=== PATIENT | female | born 1955 | race African-American/Black ===

== ENCOUNTER 2024-12-07 10:41 | Outpatient (REF) | payer MEDICARE, SELFPAY ==
--- OUTSIDE RECORDS SUMMARY | 2024-12-07 14:18 | XMS_ITS | Clinical Summary ---
Author Organization 175 [facility] Address [address] [place] [address] Phone Care Team Providers Care Psychiatric Assistant Name Role Phone Del Aparicio MD Primary Care Provider [phone] Allergies No known active allergies Medications pravastatin [...] daily. Obstructive sleep apnea 05/15/2020 Overview (07/23/2024): [facility] Home Sleep Apnea Test: Date 05/09/2020; [...] PM EST Office Visit Orthopedic Surgery - [address] [place] [phone] Mary Kate Torrez PA Bilateral shoulder pain, unspecified chronicity (Primary Dx); Pain and swelling of right wrist; Numbness and tingling in left hand 11/24/2024 Telephone Internal Medicine [address] 200 [place] [phone] Rachel Jean [place] faxed order (L&C) 11/23/2024 Telephone Internal Medicine [address] [phone] Del Aparicio MD Joseph: Epi notes 11/18/2024 1:00 PM EST Office Visit Internal Medicine [address] 200 [place] [address] Del Aparicio MD Primary hypertension (Primary Dx); Hypercholesterolemia; Hypothyroidism, unspecified type; Chronic pain of both shoulders 11/09/2024 1:15 PM EST Consult Orthopedic Surgery [facility] [address] [facility] 250 [place] [phone] Zechariah Gould DPMarla Peripheral venous insufficiency (Primary Dx); Primary osteoarthritis of both feet 09/17/2024 1:00 PM EST Office Visit Internal Medicine [facility] [address] [facility] 200 [place] [phone] Bernie Vines MD Bronchitis (Primary Dx); Primary hypertension; Hypothyroidism due to acquired atrophy of thyroid; Mixed hyperlipidemia 09/16/2024 Telephone Internal Medicine [facility] [address] [facility] 200 [place] [address] Del Aparicio MD Cough from Last 3 [...] s index (BMI) of 40.0 to 49.9 ([facility]) 08/25/2018 DX:Morbid obesity with body mass [...] PM EDT Office Visit Orthopedic Surgery - [place] [address] [facility] [address] [place] [phone] Mary Kate Torrez PA 174 [facility] 140 [place] [phone] 05/27/2025 12:00 PM EDT Office Visit Internal Medicine [facility] [address] [facility] 200 [place] [phone] Del Aparicio MD 175 [facility] 200 [place] [address] Health Maintenance Due Date Last Done Comments [...] RISK ASSESSMENT Routine 11/17/2023 COLONOSCOPY Routine 07/18/2021 [facility] SCREENING DIGITAL Routine 11/25/2020 1:09 PM EST Encounter for screening mammogram for malignant neoplasm of breast [facility] DEXA AXIAL SKELETON Routine 04/03/2018 2:03 PM [...] * Annual BMP Blood Test (05/24/2024) Pathologist [facility] Annual BMP Blood Test abstracted Historical [...] EST [facility] Diagnostic Imaging Department [address] [place] [address] Patient: ??WONG MARAVILLA ?/Age/Sex: 1955 - 65 - F Unit#: ??[id number] ? Location/Status: ??SPDIMAM/REG CLI ? Mnemonic/Ordering Site: [...] MLO projection. Computer aided detection with the [employer] 7.2-H was employed. TISSUE DENSITY: a. The [...] Routine screening mammogram BILATERAL in 1 year. [address]137, [address]506 3341F, 7025F Dictating Physician: ??YAEL HICKS MD Electronically Signed by: ??YAEL HICKS MD Dic Date/Time: ??11/25/20 1307 Sign date/Time: ??11/25/20 1309 Procedure Note Jovanna Hicks MD - 09/17/2022 [facility] Diagnostic Imaging Department [address] [place] [address] Patient: WONG MARAVILLA /Age/Sex: 1955 - 65 - F Unit#: [id number] Location/Status: [facility]/REG CLI Mnemonic/Ordering Site: [facility] Ordering Physician: DEL APARICIO MD [facility] Screening Digital - 11/25/20831 EXAM: [facility] Screening Digital EXAM DATE AND TIME: 11/25/2020 8:33 AM HISTORY: Annual screening mammography. COMPARISON: 04/06/2019 through 04/03/2018 TECHNIQUE: CC and MLO views of both breasts were obtained using fullfield digital mammography. Bilateral digital breast tomosynthesis was performedin the MLO projection. Computer aided detection with the TabSys.2-The RealRealas employed. TISSUE DENSITY: a. The breasts are [...] Routine screening mammogram BILATERAL in 1 year. 55051, 87326 3341F, 7025F Dictating Physician: YAEL HICKS MD Electronically Signed by: YAEL HICKS MD Dic Date/Time: 11/25/20 1307 Sign date/Time: 11/25/20 1309 Del Aparicio MD IM BI PROCEDURES Final Result * [facility] DEXA AXIAL SKELETON (04/03/2018 2:03 PM EDT) Anatomical Region Laterality Modality Mammography 04/03/2018 12:2 9 PM EDT Narrative 04/03/2018 2:03 PM EDT [facility] Diagnostic Imaging Department [address] [place] [address] Patient: ??WONG MARAVILLA ?/Age/Sex: 1955 - 63 - F Unit#: ??[id number] ? Location/Status: ??SPDIMAM/REG CLI ? Mnemonic/Ordering Site: ??[facility]/SPMAM Ordering Physician: ??ZURI LONDON MD [facility] Dexa Axial Skeleton - 04/03/18 - 1330 [...] probability of hip fracture of 0.1%. Code 76312 Dictating Physician: ??RODRIGO TUCKER MD Electronically Signed by: ??RODRIGO TUCKER MD Dic Date/Time: ??04/03/181401 Sign date/Time: ??04/03/181402 Procedure Note Rodrigo Tucker MD - 09/17/2022 [facility] Diagnostic Imaging Department [address] [place] [address] Patient: TAIWOWONG Leon D.O.B./Age/Sex: 1955 - 63 - F Unit#: [id number] [facility] Ordering Physician: ZURI LONDON MD [facility] Dexa Axial Skeleton - 04/03/181329 HISTORY: The [...] density of the femurs bilaterally is 1.158 gm/vm0goqrw is 115% of that of young normals [...] probability of hip fracture of 0.1%. Code 76593 Dictating Physician: RODRIGO TUCKER MD Electronically Signed by: RODRIGO TUCKER MD Dic Date/Time: 04/03/18 1402 Sign date/Time: 04/03/18 1403 Zuri London MD IMG BI PROCEDURES Final Result from Last 3 Months or Most Recently Relevant to Health Maintenance Insurance MEDICA[place] - [place] Advance Directives Documents on File Type Date Recorded Patient Prop Sawyer Expl anation Health Care Decision (hx) 01/09/2015 [...] (hx) 10/06/2013 AD CHACON DIRECTIVE Care Teams Psychiatric Assistant Relationship Specialty Start Date End Date Del Aparicio MD [address] [place] [address] PCP - General Internal Medicine 08/06/18
--- OUTSIDE RECORDS SUMMARY | 2024-12-07 14:18 | XMS_ITS | Encounter Summary ---
Author Organization [facility] Address [address] [place] [address] Care Team Providers Care Piping Supervisor Name Role Phone Del Aparicio MD Primary Care Provider [phone] Reason for Visit * Reason Onset Date Comments faxed order 11/24/2024 L&C Encounter Details Date Type Department Care Team (Late st Contact Info) Description 11/24/2024 Telephone Internal Medicine - [address] [place] [phone] Rachel Jean MA faxed order (L&C) Social [...] 11/29/2024 9:42 AM EST Faxed to L&C [phone] * Rachel Jean MA - 11/24/2024 2:14 PM EST Blake confirmation of order [id number], underpad Placed in providers folder for signature. documented in this encounter Plan of Treatment Upcoming Encounters Date Type Department Care Team (Late st Contact Info) Description 12/27/2024 2:00 PM EDT Office Visit Orthopedic Surgery - [place] [address] [place] [phone] Mary Kate Torrez PA [address] [place] [phone] 05/27/2025 12:00 PM EDT Office Visit Internal Medicine - [place] [address] [place] [phone] Del Aparicio MD 175 [facility] 200 [place] [address] documented as of this encounter Visit Diagnoses Not on filedocumented in this encounter Care Teams Piping Supervisor Relationship Specialty Start Date End Date Del Aparicio MD 175 [facility] 200 [place] [address] PCP - General Internal Medicine 08/06/18 documented as of this encounter
--- OUTSIDE RECORDS SUMMARY | 2024-12-07 14:18 | XMS_ITS | Encounter Summary ---
Author Organization [facility] Address [address] [place] [address] Care Team Providers Care Senior Designer/Art Director Name Role Phone Del Aparicio MD Primary Care Provider [phone] Reason for Visit * Reason Onset Date Comments Ronda Chowdary notes 11/23/2024 Encounter Details Date Type Department Care Team ([facility] st Contact Info) Description 11/23/2024 Telephone Internal Medicine - [place] 175 [facility] [address] [place] [phone] Del Aparicio MD 175 [facility] [address] [place] [address] Ronda Chowdary notes Social History Tobacco Use [...] PM EDT Office Visit Orthopedic Surgery - [place] [address] [place] [address] Mary Kate Torrez PA [address] [place] [address] 05/27/2025 12:00 PM EDT Office Visit Internal Medicine - [place] [address] [place] [phone] Del Aparicio MD 175 [facility] [address] [place] [address] documented as of this encounter Visit Diagnoses Not on filedocumented in this encounter Care Teams Senior Designer/Art Director Relationship Specialty Start Date End Date Del Aparicio MD 175 [facility] [address] [place] [address] PCP - General Internal Medicine 08/06/18 documented as of this encounter
--- OUTSIDE RECORDS SUMMARY | 2024-12-07 14:19 | XMS_ITS | Encounter Summary ---
Author Organization [facility] Address [address] [place] [address] Care Team Providers Care Cow Washer Name Role Phone Del Aparicio MD Primary Care Provider Reason for Referral * Consultation (Urgent) - Authorized Specialty Diagnoses / Procedures Referred By Contac t Referred To Contact Nephrology Diagnoses Primary hypertension Del Aparicio MD 175 [facility] 200 [place] [address] Phone: tel: [place]: [place] [address] [place] [address] [address] [place] [address] Phone: tel: fax: Referral ID Status Reason Start Date Expiration Date Visits Requested Visits Authorized [id number] Authorized Specialty Services Required 11/18/2024 11/18/2025 1 1 * Consultation (Routine) - Authorized Specialty Diagnoses / Procedures Referred By Contact Referred To Contact Orthopaedics / Orthopaedic Surgery Diagnoses Chronic pain of both shoulders Del Aparicio MD 175 [facility] 200 [place] [address] Phone: tel: fax: Orthopedic Surgery [place] [address] [address] Phone: tel: fax: Referral ID Status Reason Start Date Expiration Date Visits Requested Visits Authorized [id number] Authorized Specialty Services Required 11/18/2024 11/18/2025 1 1 Reason for Visit * Reason Comments Follow-up Encounter Details Date Type Department Care Team (Late st Contact Info) Description 11/18/2024 1:00 PM EST Office Visit Internal Medicine - [place] 175 [facility] [address] [place] [address] Del Aparicio MD 175 [facility] [address] [place], [place] [phone] Primary hypertension (Primary Dx); Hypercholesterolemia; Hypothyroidism, unspecified [...] (BMI) of 50.0 to 59.9 in adult ([facility]) 08/04/2024 Primary osteoarthritis of left knee 06/24/2023 Primary osteoarthritis of right knee 06/24/2023 Aortic dilatation ([facility]) 06/13/2021 Palpitations 06/13/2021 Obstructive sleep apnea 05/15/2020 Morbid obesity with body mass index (BMI) of 40.0 to 49.9 ([facility]) 08/25/2018 Vitamin D deficiency 08/25/2018 Viral upper [...] PM EDT Office Visit Orthopedic Surgery - [address] [place] [address] Mary Kate Torrez PA 174 [facility] [address] [place] [address] 05/27/2025 12:00 PM EDT Office Visit Internal Medicine - [place] 175 [facility] 200 [place] [address] Del Aparicio MD 175 [facility] [address] [place] [address] Scheduled Referrals Name Type Priority Associated Diagnoses [...] shoulders documented in this encounter Care Teams Cow Washer Relationship Specialty Start Date End Date Del Aparicio MD 175 [facility] 200 [place] [address] PCP - General Internal Medicine 08/06/18 documented as of this encounter
--- OUTSIDE RECORDS SUMMARY | 2024-12-07 14:19 | XMS_ITS | Encounter Summary ---
Author Organization [facility] Address [address] [place] [address] Care Team Providers Care Finnish Rubber Name Role Phone Del Aparicio MD Primary Care Provider [phone] Reason for Referral * Consultation (Routine) - Authorized Specialty Diagnoses / Procedures Referred By Deejay stanley Referred To Contact Physical Therapy Diagnoses Bilateral shoulder pain, unspecified chronicity Mary Kate Torrez PA 174 [facility] 140 [place] [address] Phone: tel: fax: [facility] [address] [address] Phone: tel: fax: Referral ID Status Reason Start Date Expiration Date Visits Requested Visits Authorized [id number] Authorized Specialty Services Required 11/29/2024 11/29/2025 1 1 Reason for Visit * Reason Comments Pain Encounter Details Date Type Department Care Team (Late st Contact Info) Description 11/29/2024 2:00 PM EST Office Visit Orthopedic Surgery - [place] 175 [facility] 140 [place] [address] Mary Kate Torrez PA 174 [facility] 140 [place] [address] Bilateral shoulder pain, unspecified chronicity [...] Right Wrist - Pain . HPI: 69-year-old [id number] female with chief complaint of right wrist [...] mass index (BMI) of 40.0 to 49.9 ([facility]) 08/25/2018 DX:Morbid obesity with body mass index (BMI) of 40.0 to 49.9 ([facility]) Stress incontinence in female 03/22/2015 DX:Stress incontinence [...] Patient Active Problem List Diagnosis Aortic dilatation ([facility]) Hyperlipidemia Hypertension Hypothyroidism Lichen planus Morbid obesity with body mass index (BMI) of 40.0 to 49.9 ([facility]) Obstructive sleep apnea Palpitations Primary osteoarthritis of left knee Primary osteoarthritis of right knee Stress incontinence in female Viral upper respiratory tract infection Vitamin D deficiency Class 3 severe obesity without serious comorbidity with body mass index (BMI) of 50.0 to 59.9 in adult ([facility]) ACTIVE MEDICATIONS: Current Outpatient Medications on File [...] right wrist I recommended heat and an Otmmy wrap. Patient states she cannot take NSAIDs. [...] PM EDT Office Visit Orthopedic Surgery - [address] [place] [phone] Mary Kate Torrez PA 174 [facility] [address] [place] [address] 05/27/2025 12:00 PM EDT Office Visit Internal Medicine - [place] 175 [facility] 200 [place] [address] Del Aparicio MD 175 [facility] [address] [place] [address] Scheduled Referrals Name Type Priority Associated Diagnoses [...] 11/29/2024 documented in this encounter Care Teams Finnish Rubber Relationship Specialty Start Date End Date Del Aparicio MD 175 [facility] 200 [place] [address] PCP - General Internal Medicine 08/06/18 documented as of this encounter
--- OUTSIDE RECORDS SUMMARY | 2024-12-07 14:19 | XMS_ITS | Encounter Summary ---
Author Organization [facility] Address [address] [place] [address] Care Team Providers Care Admissions Representative Name Role Phone Del Aparicio MD Primary Care Provider [phone] Reason for Referral * Consultation (Routine) - Authorized Specialty Diagnoses / Procedures Referred By Deejya stanley Referred To Contact Vascular Surgery Diagnoses Peripheral venous insufficiency Zechariah Gould DPM [address] [address] Phone: tel: fax: Referral ID Status Reason Start Date Expiration Date Visits Requested Visits Authorized [id number] Authorized Specialty Services Required 11/09/2024 11/09/2025 1 1 Reason for Visit * Reason Comments Consult Nail issues Encounter Details Date Type Department Care Team ([facility] Contact Info) Description 11/09/2024 1:15 PM EST Consult Orthopedic Surgery - [place] [address] [address] Zechariah Gould DPM [address] [address] Peripheral venous insufficiency (Primary Dx); Primary osteoarthritis [...] Patient Active Problem List Diagnosis Aortic dilatation ([facility]) Hyperlipidemia Hypertension Hypothyroidism Lichen planus Morbid obesity with body mass index (BMI) of 40.0 to 49.9 ([facility]) Obstructive sleep apnea Palpitations Primary osteoarthritis of left knee Primary osteoarthritis of right knee Stress incontinence in female Viral upper respiratory tract infection Vitamin D deficiency Class 3 severe obesity without serious comorbidity with body mass index (BMI) of 50.0 to 59.9 in adult ([facility]) SOCIAL HISTORY: Social History Tobacco Use Smoking [...] PM EDT Office Visit Orthopedic Surgery - [place] 175 [facility] [address] [place] [phone] Mary Kate Torrez PA 174 [facility] [address] [place] [address] 05/27/2025 12:00 PM EDT Office Visit Internal Medicine - [place] 175 [facility] [address] [place] [phone] Del Aparicio MD 175 [facility] [address] [place] [address] Scheduled Referrals Name Type Priority Associated Diagnoses Orde r Schedule Ambulatory referral to Vascular Surgery Outpatient Referral Routine Peripheral venous insufficiency 1 Occurrences starting 11/09/2024 until 11/09/2025 documented as of this encounter Visit Diagnoses Diagnosis Peripheral venous insufficiency- Primary Unspecified venous (peripheral) insufficiency Primary osteoarthritis of both feet documented in this encounter Care Teams Admissions Representative Relationship Specialty Start Date End Date Del Aparicio MD [address] [place] [address] PCP - General Internal Medicine 08/06/18 documented as of this encounter
[2024-12-07 19:07] LABS: Creatinine Urine 118.55 mg/dL; Protein/Creatinine Ratio, Ur 0.15 (<0.2); Total Protein Urine Random 18 mg/dL (<12)
[2024-12-07 19:42] LABS: Anion Gap 13 (12-20); Blood Urea Nitrogen 15 mg/dL (9-16); Calcium 9.7 mg/dL (8.4-10.2); Carbon Dioxide 28 mmol/L (22-29); Chloride 108 mmol/L (96-108); Estimated Glomerular Filt Rate > 60; Potassium 4.8 mmol/L (3.3-5.1); Sodium 144 mmol/L (135-145)
== END 2024-12-07 10:42 | disposition home or self-care (01) ==
LOC: HO.HKASLDS 10:41
PROVIDERS: PCP Internal Medicine; Referring Provider Internal Medicine; Visit Provider Internal Medicine Nephrology
DX: I10 Essential (primary) hypertension (principal); I77.819 Aortic ectasia, unspecified site
CPT/HCPCS: 36415; 80051; 82310; 82565; 82570; 84156; 84520; 99202

== ENCOUNTER 2024-12-07 10:41 | Outpatient (AMB) | payer MEDICARE, SELFPAY ==
--- NOTE | 2024-12-07 10:43 | HO.NEPHOV_ITS ---
Vital Signs 12/07/24 10:47 Height 5 ft 1 in Weight 274 lb BMI 51.8 BP 150/100 H Blood Pressure Location Lt radial Position Sitting Pulse 62 Pulse Source Pulse Oximeter Pulse Oximetry (%) 95 Oxygen Delivery Method Room Air Intake Visit Reasons: ENP: Hypertension- Conf Program Control Analyst Required: No Accompanied by: Spouse Allergies No Known Allergies Allergy (Verified 12/07/24 10:47) HPI Comments Details: I had the privilege of seeing Tonya in consultation for her difficult -to-control blood pressure. She has hypertension for a long time and has been on multiple medications. Number medications and its doses has been steadily going up. She is not strict with a low-sodium diet and has struggled all along to lose weight. She has obstructive sleep apnea and does not wear any CPAP. She has taken amlodipine in the past which has caused her ankle swelling and had been discontinued. She has history of aortic root dilatation by echocardiogram. She denies any coronary artery disease, congestive heart failure, CVA, peripheral arterial disease or excessive nonsteroidal anti-inflammatory medication use. She has no history of hypokalemia, uncontrolled thyroid disorders, hypercalcemia, renal dysfunction. She claims to be compliant with medications. She has strong family history of hypertension. [facility] Medical History (Updated 12/07/24 @ 11:26 by Shaun Devine MD) Hyperlipidemia Aortic dilatation Vitamin D deficiency Viral upper respiratory tract infection Stress incontinence in female Primary osteoarthritis of right knee Primary osteoarthritis of left knee Palpitations Obstructive sleep apnea Morbid obesity with body mass index (BMI) of 40.0 to 49.9 Lichen planus Hypothyroidism Hypertension Surgical History (Updated 12/07/24 @ 10:45 by Trina Warren MA) H/O colonoscopy History of cholecystectomy Family History (Updated 12/07/24 @ 10:44 by Trina Warren MA) Mother Heart disease Hypertension Social History (Updated 12/07/24 @ 10:44 by Trina Warren MA) Alcohol intake: never Patient Tobacco Use Status: Never used Tobacco Review of Systems Const All systems reviewed & are unremarkable except as noted in HPI and below Physical Exam Vital Signs: Last Vital Signs Pulse 62 12/07/24 10:47 BP 150/100 H 12/07/24 10:47 Pulse Ox 95 12/07/24 10:47 Oxygen Delivery Method Room Air 12/07/24 10:47 BMI result Body Mass Index 51.8 Const General: comfortable and no acute distress Orientation/consciousness: patient oriented x3 HEENT Head: Yes normocephalic Mouth: Normal oral and palatal mucosa present Eyes EOM: EOMs intact bilaterally Neck Neck: Yes supple Resp Auscultation: clear to auscultation bilaterally Cardio Jugular venous distension: no JVD Rate: regular rate GI Palpation (GI): Soft to palpation Auscultation: normal bowel sounds Neuro General: patient oriented x3 and moves all extremities Extrem General: Yes no pedal edema Results Reviewed Nephrology Results: 2 Sodium 144 mmol/L (135-145) 12/07/24 Potassium 4.8 mmol/L (3.3-5.1) 12/07/24 Chloride 108 mmol/L (96-108) 12/07/24 Carbon Dioxide 28 mmol/L (22-29) 12/07/24 BUN 15 mg/dL (9-16) 12/07/24 Creatinine 0.83 mg/dL (0.5-1.4) 12/07/24 Calcium 9.7 mg/dL (8.4-10.2) 12/07/24 Urine Creatinine 118.55 mg/dL 12/07/24 Protein/Creatinin Ratio 0.15 (<0.2) 12/07/24 Assessment & Plan Assessment & Plan (1) Hypertension: Code(s): I10 - Essential (primary) hypertension Category: Medical Qualifiers: Hypertension type: primary hypertension Qualified Code(s): I10 - Essential (primary) hypertension (2) Aortic dilatation: Code(s): I77.819 - Aortic ectasia, unspecified site Category: Medical Plan Tonya clearly will benefit from weight loss and lifestyle modification including low-sodium diet. She needs to be compliant with her CPAP. She could continue her current dosage of labetalol and lisinopril. I increased her hydralazine to 50 mg twice daily. She may be having some mineralocorticoid excess and will be a great candidate for spironolactone. She has not had any lab work recently and as a result I did not initiate her on spironolactone. Her blood pressure needs to be maintain a goal given her aortic root dilatation. She has history of edema from calcium channel michael. I will consider doing a Doppler of her renal arteries and initiating her on chlorthalidone and combining with the lisinopril based on evolving data. She has no history of retinopathy, renal dysfunction, proteinuria, diabetes mellitus, coronary artery disease. All these have been explained in detail. Answered all questions. Orders: Orders Creatinine Today I10 - Essential (primary) hypertension, I77.819 - Aortic ectasia, unspecified site Blood Urea Nitrogen Today I10 - Essential (primary) hypertension, I77.819 - Aortic ectasia, unspecified site Electrolytes Today I10 - Essential (primary) hypertension, I77.819 - Aortic ectasia, unspecified site Calcium Today I10 - Essential (primary) hypertension, I77.819 - Aortic ectasia, unspecified site Protein Creatinine Ratio, Ur Today I10 - Essential (primary) hypertension, I7 7.819 - Aortic ectasia, unspecified site Coding Level of Care Code New Pt Level 4 (90149) Diagnoses Primary hypertension I10 Hypertension type: primary hypertension Aortic dilatation I77.819
[2024-12-07 10:47] VITALS: BP 150/100; PULSE 62; O2SAT 95; BMI 51.8
--- OUTSIDE RECORDS SUMMARY | 2024-12-07 12:51 | XMS_ITS | Clinical Summary ---
Author Organization [facility] Address [address] [place] [address] Phone Care Team Providers Care Olive Knocker Name Role Phone Del Aparicio MD Primary Care Provider [phone] Allergies No known active allergies Medications pravastatin (PRAVACHOL) 20 mg tablet Take 1 tablet (20 mg total) by mouth 1 (one) time each day. 07/06/20 24 Active calcium carbonate-vitamin D3 (Calcium 600 + D,3,) 600 mg-5 mcg (200 unit) per tablet TAKE 1 TABLET BY MOUTH DAILY 04/09/20 24 Active medical supply, miscellaneous (MISCELLANEOUS MEDICAL SUPPLY MISC) INCONTINENCE SUPPLY DISPOSABLE (DISPOSABLE LINERS) MISC 1 Each by Does not apply route 3 times daily. 08/04/20 23 Active fluticasone propionate (FLONASE) 50 mcg/actuation nasal spray Administer 2 sprays into each nostril 1 (one) time each day. 02/28/20 23 Active OMEGA-3 FATTY ACIDS-FISH OIL ORAL Take by mouth daily. Active aspirin 81 mg EC tablet Take 1 tablet (81 mg total) by mouth 1 (one) time each day. 08/04/20 19 Active amLODIPine (NORVASC) 5 mg tablet TAKE 1 TABLET BY MOUTH DAILY 90 tablet 1 08/03/20 24 Active lisinopril (PRINIVIL,ZESTRIL ) 40 mg tablet TAKE 1 TABLET BY MOUTH DAILY 90 tablet 1 08/08/20 24 Active hydrALAZINE (APRESOLINE) 25 mg tablet Take 1 tablet (25 mg total) by mouth 2 (two) times a day. 180 each 3 08/09/20 24 Active semaglutide (Wegovy) 0.25 mg/0.5 mL injection penIndications:Cl ass 3 severe obesity without serious comorbidity with body mass index (BMI) of 50.0 to 59.9 in adult, unspecified obesity type (CMS/HCC) Inject 0.25 mg under the skin every 7 (seven) days. 4 mL 08/13/20 24 Active benzonatate (TESSALON) 200 mg capsule Take 1 capsule (200 mg total) by mouth 3 (three) times a day if needed for cough. Do not crush or chew. 21 capsule 09/17/20 24 Active Additional Information Patient not taking.Reported on 11/29/2024 levothyroxine (SYNTHROID, LEVOTHROID) 112 mcg tablet TAKE 1 TABLET BY MOUTH DAILY 90 tablet 1 11/02/19 25 Active labetaloL (NORMODYNE) 200 mg tablet Take 1 tablet (200 mg total) by mouth 2 (two) times a day. 60 tablet 1 11/07/19 25 Active methylPREDNISolon e (MEDROL DOSPAK) 4 mg tablet Follow schedule on package instructions 1 each 11/30/19 Active Active Problems Problem Noted Date Diagnosed Date Class 3 severe obesity witho ut serious comorbidity with body mass index (BMI) of 50.0 to 59.9 in adult 08/04/2024 Primary osteoarthritis of left knee 06/24/2023 Primary osteoarthritis of right knee 06/24/2023 Aortic dilatation 06/13/2021 Overview (07/23/2024): Last Assessment & Plan: Patient's last echocardiogram showing an ascending aortic measurement 3.8 cm. Continue to monitor. Palpitations 06/13/2021 Overview (07/23/2024): Last Assessment & Plan: Patient denies any recurrent palpitations. She is on labetalol 200 mg twice daily. Obstructive sleep apnea 05/15/2020 Overview (07/23/2024): [facility] Home Sleep Apnea Test: Date 05/09/2020; BMI 45; RDI 77, AHI 77; average oxygen saturation 93% (lowest 73% without saturations <88% for 5% or more of study) - Obstructive Sleep Apnea - severe; without sleep related hypoventilation by 2019 home sleep apnea test. Morbid obesity with body mass index (BMI) of 40. 0 to 49.9 08/25/2018 Vitamin D deficiency 08/25/2018 Viral upper respiratory tract infection 08/06/20 18 Hypertension 06/25/2018 Overview (07/23/2024): Last Assessment & Plan: Patient's blood pressure today 140/80. She is concerned about her leg edema and attributes this to her amlodipine. At this point we will stop amlodipine and I will substitute this with hydralazine 25 mg twice a day. She will continue with labetalol, lisinopril as prescribed. She will monitor her blood pressure at home and call me next week with an update on her blood pressure readings. If necessary I will increase hydralazine to 50 mg twice a day. I encouraged her to continue to wear compression stockings. Hyperlipidemia 05/14/2018 Overview (07/23/2024): Last Assessment & Plan: Patient continues on pravastatin 20 mg once a day. Last LDL cholesterol was 117. I have reviewed with the patient the importance of a heart healthy lifestyle which includes eating a low-fat low-salt diet, getting regular exercise, maintaining a healthy weight, not smoking, and following up with routine medical care. Lichen planus 05/14/2018 Hypothyroidism 05/04/2018 Stress incontinence in female 03/22/2015 Encounters Date Type Department Care Team Description 11/29/2024 2:00 PM EST Office Visit Orthopedic Surgery - [address] [place] [phone] Mary Kate Torrez PA Bilateral shoulder pain, unspecified chronicity (Primary Dx); Pain and swelling of right wrist; Numbness and tingling in left hand 11/24/2024 Telephone Internal Medicine [address] [place] [phone] Rachel Jean MA faxed order (L&C) 11/23/2024 Telephone Internal Medicine [address] [phone] Del Aparicio MD Joseph: Epi notes 11/18/2024 1:00 PM EST Office Visit Internal Medicine [address] [place] [phone] Del Aparicio MD Primary hypertension (Primary Dx); Hypercholesterolemia; Hypothyroidism, unspecified type; Chronic pain of both shoulders 11/09/2024 1:15 PM EST Consult Orthopedic Surgery [facility] [address] [facility] [address] [place] [phone] Zechariah Gould DPMarla Peripheral venous insufficiency (Primary Dx); Primary osteoarthritis of both feet 09/17/2024 1:00 PM EST Office Visit Internal Medicine [facility] [address] [facility] [address] [place] [phone] Bernie Vines MD Bronchitis (Primary Dx); Primary hypertension; Hypothyroidism due to acquired atrophy of thyroid; Mixed hyperlipidemia 09/16/2024 Telephone Internal Medicine [facility] [address] [facility] [address] [place] [phone] Del Aparicio MD Cough from Last 3 Months Immunizations Name Administration Dates Next Due Pneumococcal polysaccharide 23 valent (Pneumovax 23) 2yo and older 08/20/2016 Tdap Tetanus diptheria acell ular pertussis (Boostrix; Adacel) 7yo and older 09/29/2013 Surgical History Surgery Date Site/Laterality Comments CHOLECYSTECTOMY PROCEDURE: HISTORICAL CHOLECYSTECTOMY Medical History Medical History Date Comments Viral upper respiratory trac t infection 08/06/2018 DX:Viral upper respiratory t ract infection History of TIA (transient is chemic attack) 11/11/2016 DX:History of TIA (transient ischemic attack) Hyperlipidemia 05/14/2018 DX:Hyperlipidemi a Hypertension 06/25/2018 DX:Hypertension Hypothyroidism 05/04/2018 DX:Hypothyroidis m Lichen planus 05/14/2018 DX:Lichen planus Morbid obesity with body mas s index (BMI) of 40.0 to 49.9 [facility] 08/25/2018 DX:Morbid obesity with body mass index (BMI) of 40.0 to 49.9 ([facility]) Stress incontinence in female 03/22/2015 DX :Stress incontinence in female Vitamin D deficiency 08/25/2018 DX:Vitamin D deficiency Family History Medical History Relation Name Comments No Known Problems Father Relation Name Status Comments Father Mother Social History Tobacco Use Types Packs/Day Years Used Date Smoking Tobacco: Never Smokeless Tobacco: Never Alcohol Use Standard Drinks/Week Comments No 0 (1 standard drink = 0.6 oz pur e alcohol) Comments Unknown Sex and Gender Information Value Date Recorded Sex Assigned at Not on file Legal Sex Female 10:12 PM EST Gender Identity Not on file Sexual Orientation Not on file Obstetrics History Last Filed Vital Signs Vital Sign Reading Time Taken Comments Blood Pressure 158/80 11/18/2024 1:32 PM EST Pulse 70 11/18/2024 1:15 PM EST Temperature 36 ??C (96.8 ??F) 11/18/2024 1:15 PM EST Respiratory Rate - - Oxygen Saturation 98% 11/18/2024 1:15 PM EST Inhaled Oxygen Concentration - - Weight 123 kg (271 lb) 11/29/2024 2:04 PM EST Height 154.9 cm (5' 1 ) 11/29/2024 2:04 PM EST Body Mass Index 51.21 11/29/2024 2:04 PM EST Plan of Treatment Upcoming Encounters Date Type Department Care Team (Late st Contact Info) Description 12/27/2024 2:00 PM EDT Office Visit Orthopedic Surgery - [place] [address] [facility] [address] [place] [phone] Mary Kate Torrez PA [address] [facility] [address] [place] [phone] 05/27/2025 12:00 PM EDT Office Visit Internal Medicine [facility] [address] [facility] [address] [place] [phone] Del Aparicio MD [address] [facility] [address] [place] [address] Health Maintenance Due Date Last Done Comments Zoster Vaccines (1 of 2) 02/17/2004 RSV Immunization Patients 60+ Years Old (1 - Risk 60-74 years 1-dose series) 2014 Hepatitis C Screening 09/07/2022 Social Influencers of Health Screening 09/07/2022 Breast Cancer Screening 11/25/2022 11/25/19, 04/06/2019, 04/03/2018 DTaP,Tdap,and Td Vaccines (2 - Td or Tdap) 09/29/2023 09/29/2013 COVID-19 Vaccine ( season) 2024 07/15/2022, 08/22/2021, 01/17/2021, Additional history exists Influenza Vaccine (#1) 2024 07/28/2022, 2020 Depression Screening 11/17/2024 11/17/2023 Falls Risk Assessment 11/17/2024 11/17/2023 Hypertension/CHF/CAD Annual BMP Blood Test 05/24/2025 05/24/2024, 05/24/2024 Pneumococcal Vaccine: 50+ Years (3 of 3 - PCV20 or PCV21) 05/15/2026 05/15/2021, 08/20/2016 Colorectal Cancer Screening: Colonoscopy 07/18/2026 07/18/2021 Osteoporosis Screening (Bone Density Screening) 04/03/2028 04/03/2018 Cholesterol Screening (Lipid Panel) 05/24/2029 05/24/2024, 05/24/2024 Medicare Annual Wellness Visit Discontinued 11/17/2023 HIB Vaccines Aged Out No longer eligi ble based on patient's age to complete this topic HPV Vaccines Aged Out No longer eligi ble based on patient's age to complete this topic Hepatitis A Vaccines Aged Out No long er eligible based on patient's age to complete this topic Hepatitis B Vaccines Aged Out No long er eligible based on patient's age to complete this topic IPV Vaccines Aged Out No longer eligi ble based on patient's age to complete this topic MMR Vaccines Aged Out No longer eligi ble based on patient's age to complete this topic Meningococcal ACWY Vaccine Aged Out N o longer eligible based on patient's age to complete this topic Meningococcal B Vacine Aged Out No lo nger eligible based on patient's age to complete this topic RSV Immunization Patients Under 20 months Aged Out No longer eligible based on patient's age to complete this topic Varicella Vaccines Aged Out No longer eligible based on patient's age to complete this topic Procedures Procedure Name Priority Date/Time Associated Diagnosis Comments XR WRIST 3+ VIEWS RIGHT Routine 11/29/2024 2:00 PM EST Pain and swelling of right wrist HM ANNUAL BMP BLOOD TEST Routine 05/24/2024 LIPID PANEL Routine 05/24/2024 DEPRESSION SCREENING Routine 11/17/2023 FALLS RISK ASSESSMENT Routine 11/17/2023 COLONOSCOPY Routine 07/18/2021 [facility] SCREENING DIGITAL Routine 11/25/2020 1:09 PM EST Encounter for screening mammogram for malignant neoplasm of breast [facility] DEXA AXIAL SKELETON Routine 04/03/2018 2:03 PM EDT Encounter for screening for osteoporosis from Last 3 Months or Most Recently Relevant to Health Maintenance Results * XR Wrist 3+ Views Right (11/29/2024 2:00 PM EST) Anatomical Region Laterality Modality Upper Extremities, Wrist Right Compute d Radiography Narrative 11/30/2024 8:42 AM EST Date of Visit: 11/29/2024 Reason for visit: Right wrist pain Views: AP, lateral, oblique right wrist Comparison: None Findings: No fracture, dislocation or lytic lesions noted. ??Mild arthritic changes of radiocarpal joint. ??Mild to moderate right thumb basal joint arthritis. 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 No acute findings. Mary Kate ARORA IMG XR PROCEDURES Final Resul t * Annual BMP Blood Test (05/24/2024) Pathologist [facility] Annual BMP Blood Test abstracted Historical Provider HEALTH MAINTENANCE Final Result * (ABNORMAL) Lipid panel (05/24/2024) LDL/HDL Ratio 4 0 - 4 Triglycerides 114 0 - 150 mg/dL Cholesterol 192 0 - 200 mg/dL HDL 53 >=40 mg/dL LDL Cholesterol 117(A) 0 - 100 mg/dL Blood Venous blood specimen / Unknown us Historical Provider LAB BLOOD ORDERABLES Tomasa l Result * Falls Risk Assessment (11/17/2023) Falls Risk Assessment abstracted us Historical Provider HEALTH MAINTENANCE Final Result * Depression Screening (11/17/2023) Depression Screening abstracted Historical Provider HEALTH MAINTENANCE Final Result * Colonoscopy (07/18/2021) Colonoscopy no interpretation , abstracted Anatomical Region Laterality Modality Other Historical Provider HEALTH MAINTENANCE Final Result * LIZZETH SCREENING DIGITAL (11/25/2020 1:09 PM EST) Anatomical Region Laterality Modality Mammography 11/23/2020 8:48 AM EST Narrative 11/25/2020 1:09 PM EST [facility] Diagnostic Imaging Department [address] [place] [address] Patient: ??WONG MARAVILLA ?/Age/Sex: 1955 - 65 - F Unit#: ??[id number] ? Location/Status: ??SPDIMAM/REG CLI ? Mnemonic/Ordering Site: ??DIGSC/SPMAM Ordering Physician: ??DEL APARICIO MD [facility] Screening Digital - 11/25/20831 EXAM: [facility] Screening Digital EXAM DATE AND TIME: 11/25/2020 8:33 AM HISTORY: ??Annual screening mammography. COMPARISON: ??04/06/2019 through 04/03/2018 TECHNIQUE: CC and MLO views of both breasts were obtained using full field digital mammography. Bilateral digital breast tomosynthesis was performed in the MLO projection. Computer aided detection with the [employer] 7.2-H was employed. TISSUE DENSITY: a. The breasts are almost entirely fatty. FINDINGS: No suspicious masses, grouped microcalcifications, or areas of architectural distortion are seen. ??Benign rare calcifications bilaterally. ??The skin and vascularity are unremarkable. IMPRESSION: Stable mammographic appearance of the breasts. ??No evidence of malignancy is seen. A negative mammogram in the presence of a clinically suspicious palpable abnormality does not preclude the possibility of malignancy or alter the indications for biopsy. BI-RADS: ??Category 1: Negative RECOMMENDATION(S): 1: Routine screening mammogram BILATERAL in 1 year. 10549, 82619 3341F, 7025F Dictating Physician: ??YAEL HICKS MD Electronically Signed by: ??YAEL HICKS MD Dic Date/Time: ??11/25/20 1307 Sign date/Time: ??11/25/20 1309 Procedure Note Jovanna Hicks MD - 09/17/2022 [facility] Diagnostic Imaging Department [address] [place] [address] Patient: WONG MARAVILLA /Age/Sex: 1955 - 65 - F Unit#: [id number] Location/Status: [facility]/REG CLI Mnemonic/Ordering Site: [facility] Ordering Physician: DEL APARICIO MD [facility] Screening Digital - 11/25/20831 EXAM: [facility] Screening Digital EXAM DATE AND TIME: 11/25/2020 8:33 AM HISTORY: Annual screening mammography. COMPARISON: 04/06/2019 through 04/03/2018 TECHNIQUE: CC and MLO views of both breasts were obtained using fullfield digital mammography. Bilateral digital breast tomosynthesis was performedin the MLO projection. Computer aided detection with the [employer].2-Aspyraas employed. TISSUE DENSITY: a. The breasts are almost entirely fatty. FINDINGS: No suspicious masses, grouped microcalcifications, or areas ofarchitectural distortion are seen. Benign rare calcifications bilaterally. The skinand vascularity are unremarkable. IMPRESSION: Stable mammographic appearance of the breasts. No evidence of malignancyis seen. A negative mammogram in the presence of a clinically suspicious palpable abnormality does not preclude the possibility of malignancy or alter the indications for biopsy. BI-RADS: Category 1: Negative RECOMMENDATION(S): 1: Routine screening mammogram BILATERAL in 1 year. 64263, 86705 3341F, 7025F Dictating Physician: YAEL HICKS MD Electronically Signed by: YAEL HICKS MD Dic Date/Time: 11/25/20 1307 Sign date/Time: 11/25/20 1309 Del Aparicio MD IM BI PROCEDURES Final Result * [facility] DEXA AXIAL SKELETON (04/03/2018 2:03 PM EDT) Anatomical Region Laterality Modality Mammography 04/03/2018 12:2 9 PM EDT Narrative 04/03/2018 2:03 PM EDT [facility] Diagnostic Imaging Department [address] [place] [id number] Patient: ??WONG MARAVILLA ?/Age/Sex: 1955 - 63 - F Unit#: ??[id number] ? Location/Status: ??SPDIMAM/REG CLI ? Mnemonic/Ordering Site: ??MAMDEXAAX/SPMAM Ordering Physician: ??ZURI LONDON MD [facility] Dexa Axial Skeleton - 04/03/18 - 1330 HISTORY: ??The patient is a 63-year-old postmenopausal female with clinical concern for metabolic bone disease. FINDINGS: ??Dual energy x-ray absorptiometry of the lumbar spine and femurs is performed. The mean bone mineral density at L1-L4 is 1.317 gm/cm2 which is 112% of that of young normals and 108% of that of age matched controls. This yields a T-score of 1.1 and a Z-score of 0.8 and there is therefore no evidence of osteoporosis or osteopenia here. The mean bone mineral density of the femurs bilaterally is 1.158 gm/cm2 which is 115% of that of young normals and 106% of that of age matched controls. ??This yields a T-score of 1.2 and a Z-score of 0.5 and there is therefore no evidence of osteoporosis or osteopenia here. IMPRESSION: 1. There is no evidence of osteoporosis or osteopenia. ??There has been a decrease of 0.7% in bone mineral density in the lumbar spine since the prior examination of 02/10/2015. ??There has been a decrease of 0.5% in bone mineral density in the right femur and a decrease of 1.8% in bone mineral density in the left femur. 2. FRAX analysis yields a 10-year probability of major osteoporotic fracture of 2.3% and a 10-year probability of hip fracture of 0.1%. Code 16195 Dictating Physician: ??RODRIGO TUCKER MD Electronically Signed by: ??RODRIGO TUCKER MD Dic Date/Time: ??04/03/181401 Sign date/Time: ??04/03/181402 Procedure Note Rodrigo Tucker MD - 09/17/2022 [facility] Diagnostic Imaging Department [address] [place] [address] Patient: TAIWOWONG Leon D.O.B./Age/Sex: 1955 - 63 - F Unit#: [id number] Location/Status: [facility] Mnemonic/Ordering Site: [facility] Ordering Physician: ZURI LONDON MD [facility] Dexa Axial Skeleton - 04/03/181329 HISTORY: The patient is a 63-year-old postmenopausal female withclinical concern for metabolic bone disease. FINDINGS: Dual energy x-ray absorptiometry of the lumbar spine and femursis performed. The mean bone mineral density at L1-L4 is 1.317 gm/cm2 which is112% of that of young normals and 108% of that of age matched controls. Thisyields a T-score of 1.1 and a Z-score of 0.8 and there is therefore no evidenceof osteoporosis or osteopenia here. The mean bone mineral density of the femurs bilaterally is 1.158 gm/zy6xbkff is 115% of that of young normals and 106% of that of age matched controls.This yields a T-score of 1.2 and a Z-score of 0.5 and there is therefore noevidence of osteoporosis or osteopenia here. IMPRESSION: 1. There is no evidence of osteoporosis or osteopenia. There has been a decrease of 0.7% in bone mineral density in the lumbar spine since theprior examination of 02/10/2015. There has been a decrease of 0.5% in bonemineral density in the right femur and a decrease of 1.8% in bone mineral densityin the left femur. 2. FRAX analysis yields a 10-year probability of major osteoporoticfracture of 2.3% and a 10-year probability of hip fracture of 0.1%. Code 45753 Dictating Physician: RODRIGO UTCKER MD Electronically Signed by: RODRIGO TUCKER MD Dic Date/Time: 04/03/18 1402 Sign date/Time: 04/03/18 1403 Zuri London MD IMG BI PROCEDURES Final Result from Last 3 Months or Most Recently Relevant to Health Maintenance Insurance MEDICAID - [place] Advance Directives Documents on File Type Date Recorded Patient Project Buyer Expl anation Health Care Decision (hx) 01/09/2015 AD CHACON DIRECTIVE Health Care Decision (hx) 01/09/2015 AD CHACON DIRECTIVE Health Care Decision (hx) 01/09/2015 AD CHACON DIRECTIVE Health Care Decision (hx) 01/09/2015 AD CHACON DIRECTIVE Health Care Decision (hx) 01/09/2015 AD CHACON DIRECTIVE Health Care Decision (hx) 01/09/2015 AD CHACON DIRECTIVE Health Care Decision (hx) 01/09/2015 AD CHACON DIRECTIVE Health Care Decision (hx) 10/21/2013 AD CHACON DIRECTIVE Health Care Decision (hx) 10/21/2013 AD CHACON DIRECTIVE Health Care Decision (hx) 10/21/2013 AD CHACON DIRECTIVE Health Care Decision (hx) 10/21/2013 AD CHACON DIRECTIVE Health Care Decision (hx) 10/21/2013 AD CHACON DIRECTIVE Health Care Decision (hx) 10/21/2013 AD CHACON DIRECTIVE Health Care Decision (hx) 10/21/2013 AD CHACON DIRECTIVE Health Care Decision (hx) 10/06/2013 AD CHACON DIRECTIVE Health Care Decision (hx) 10/06/2013 AD CHACON DIRECTIVE Health Care Decision (hx) 10/06/2013 AD CHACON DIRECTIVE Health Care Decision (hx) 10/06/2013 AD CHACON DIRECTIVE Health Care Decision (hx) 10/06/2013 AD CHACON DIRECTIVE Health Care Decision (hx) 10/06/2013 AD CHACON DIRECTIVE Health Care Decision (hx) 10/06/2013 AD CHACON DIRECTIVE Health Care Decision (hx) 10/06/2013 AD CHACON DIRECTIVE Health Care Decision (hx) 10/06/2013 AD CHACON DIRECTIVE Health Care Decision (hx) 10/06/2013 AD CHACON DIRECTIVE Health Care Decision (hx) 10/06/2013 AD CHACON DIRECTIVE Health Care Decision (hx) 10/06/2013 AD CHACON DIRECTIVE Health Care Decision (hx) 10/06/2013 AD CHACON DIRECTIVE Health Care Decision (hx) 10/06/2013 AD CHACON DIRECTIVE Care Teams Olive Knocker Relationship Specialty Start Date End Date Del Aparicio MD [address] [place] [address] PCP - General Internal Medicine 08/06/18
--- OUTSIDE RECORDS SUMMARY | 2024-12-07 12:51 | XMS_ITS | Encounter Summary ---
Author Organization [facility] Address [address] [place] [address] Care Team Providers Care Rnfa Name Role Phone Del Aparicio MD Primary Care Provider [phone] Reason for Referral * Consultation (Routine) - Authorized Specialty Diagnoses / Procedures Referred By Deejay stanley Referred To Contact Vascular Surgery Diagnoses Peripheral venous insufficiency Zechariah Gould DPM [address] [address] Phone: tel: fax: Referral ID Status Reason Start Date Expiration Date Visits Requested Visits Authorized [id number] Authorized Specialty Services Required 11/09/2024 11/09/2025 1 1 Reason for Visit * Reason Comments Consult Nail issues Encounter Details Date Type Department Care Team ([facility] Contact Info) Description 11/09/2024 1:15 PM EST Consult Orthopedic Surgery - [place] [address] [address] Zechariah Gould DPM [address] [address] Peripheral venous insufficiency (Primary Dx); Primary osteoarthritis of both feet Social History Tobacco Use Types Packs/Day Years Used Date Smoking Tobacco: Never Smokeless Tobacco: Never Alcohol Use Standard Drinks/Week Comments No 0 (1 standard drink = 0.6 oz pur e alcohol) Comments Unknown Sex and Gender Information Value Date Recorded Sex Assigned at Not on file Legal Sex Female 10:12 PM EST Gender Identity Not on file Sexual Orientation Not on file documented as of this encounter Last Filed Vital Signs Vital Sign Reading Time Taken Comments Blood Pressure - - Pulse - - Temperature - - Respiratory Rate - - Oxygen Saturation - - Inhaled Oxygen Concentration - - Weight 121 kg (267 lb) 11/09/2024 1:29 PM EST Height 154.9 cm (5' 0.98 ) 11/09/2024 1:29 PM ES T Body Mass Index 50.48 11/09/2024 1:29 PM EST documented in this encounter Progress Notes * Zechariah Gould DPM - 11/09/2024 1:15 PM EST IDENTIFIER: Tom is a 69 y.o. year old female who presents for consultation. CC: Foot pain HPI: Presents today complaining pain in her feet she does she has tumor swelling both lower extremities left worse than right she is throbbing achy swelling pain discomfort she would like to know was causing swelling she has tried different blood pressure medications reports she is also being worked up for knee replacements and with weight loss states that her left foot leg is swollen brown discoloration is like to know is causing it achy throbbing pain 3-10 visual analog scale ROS: GENERAL: Pt denies nausea, fever, vomiting, chills, or shortness of breath. Pt in NAD. CARDIOLOGY: pt denies chest pain, palpitations LUNGS: pt denies shortness of breath MUSCULOSKELETAL: See HPI, otherwise no joint pain or swelling, back pain, or muscle pain. SKIN: see HPI, otherwise no lesions, rash or itching NEURO: No persistent headache, weakness or numbness The remainder of the review of systems is noncontributory PAST MEDICAL HISTORY: Patient Active Problem List Diagnosis Aortic dilatation ([facility]) Hyperlipidemia Hypertension Hypothyroidism Lichen planus Morbid obesity with body mass index (BMI) of 40.0 to 49.9 ([facility]) Obstructive sleep apnea Palpitations Primary osteoarthritis of left knee Primary osteoarthritis of right knee Stress incontinence in female Viral upper respiratory tract infection Vitamin D deficiency Class 3 severe obesity without serious comorbidity with body mass index (BMI) of 50.0 to 59.9 in adult ([facility]) SOCIAL HISTORY: Social History Tobacco Use Smoking status: Never Smokeless tobacco: Never Substance Use Topics Alcohol use: No ACTIVE MEDICATIONS: Outpatient Medications Marked as Taking for the 11/09/24 encounter (Consult) with Zechariah Gould DPM Medication Sig Dispense Refill amLODIPine (NORVASC) 5 mg tablet TAKE 1 TABLET BY MOUTH DAILY 90 tablet 1 aspirin 81 mg EC tablet Take 1 tablet (81 mg total) by mouth 1 (one) time each day. benzonatate (TESSALON) 200 mg capsule Take 1 capsule (200 mg total) by mouth 3 (three) times a day if needed for cough. Do not crush or chew. 21 capsule 0 calcium carbonate-vitamin D3 (Calcium 600 + D,3,) 600 mg-5 mcg (200 unit) per tablet TAKE 1 TABLET BY MOUTH DAILY fluticasone propionate (FLONASE) 50 mcg/actuation nasal spray Administer 2 sprays into each nostril1 (one) time each day. hydrALAZINE (APRESOLINE) 25 mg tablet Take 1 tablet (25 mg total) by mouth 2 (two) times a day. 180each 3 labetaloL (NORMODYNE) 200 mg tablet Take 1 tablet (200 mg total) by mouth 2 (two) times a day. 60 tablet 1 levothyroxine (SYNTHROID, LEVOTHROID) 112 mcg tablet TAKE 1 TABLET BY MOUTH DAILY 90 tablet 1 lisinopril (PRINIVIL,ZESTRIL) 40 mg tablet TAKE 1 TABLET BY MOUTH DAILY 90 tablet 1 medical supply, miscellaneous (MISCELLANEOUS MEDICAL SUPPLY MISC) INCONTINENCE SUPPLY DISPOSABLE (DISPOSABLE LINERS) MISC 1 Each by Does not apply route 3 times daily. OMEGA-3 FATTY ACIDS-FISH OIL ORAL Take by mouth daily. pravastatin (PRAVACHOL) 20 mg tablet Take 1 tablet (20 mg total) by mouth 1 (one) time each day. semaglutide (Wegovy) 0.25 mg/0.5 mL injection pen Inject 0.25 mg under the skin every 7 (seven) days. 4 mL 0 ALLERGIES: No Known Allergies PHYSICAL EXAM: Visit Vitals Ht 1.549 m (60.98 ) Wt 121 kg (267 lb) BMI 50.48 kg/m?? Smoking Status Never BSA 2.13 m?? PODIATRIC EXAMINATION: GENERAL: Patient appears well nourished, with NAD. VASCULAR: Dorsalis pedis pulses are 2/4 bilaterally and Posterior tibial pulses are 2/4 bilaterally. Capillary filling time within normal limits the digits. +4 pitting edema bilaterally left worse than right with brown discoloration lipodermatosclerosis both lower extremities NEUROLOGICAL: Sharp/dull sensation intact, protective sensation intact 10/10 with 5.07 semmes karl bilaterally, vibratory sensation with tuning fork intact to the tibial tuberosity. ORTHOPEDIC: Good muscle strength 5/5 of all flexors and extensors. Dorsi flexion of ankle ,10 degrees, plantar flexion WNL. No muscle atrophy. DERMATOLOGICAL:.No masses or skin lesions noted. Normal skin temperature, normal skin turgor. BIOMECHANICS: Ankle ROM WNL, STJ ROM crepitation bilateral, MTJ ROM wnl, 1st MPJ ROM wnl. IMAGING: IMPRESSION: 1. Peripheral venous insufficiency 2. Primary osteoarthritis of both feet PLAN: Pt was seen and examined, history reviewed. Compression stockings offered for prescription patient declined Alternative treatment options including referral for vascular surgery for further workup evaluationof her vessels were discussed and reviewed Patient states like to pursue referral for vascular surgery Pain in her hindfoot joints was discussed and reviewed steroid injections were offered patient declined Follow-up in 3 months Referral placed to vascular surgery for evaluation of venous congestive disease Zechariah Gould DPM documented in this encounter Plan of Treatment Upcoming Encounters Date Type Department Care Team (Late st Contact Info) Description 12/27/2024 2:00 PM EDT Office Visit Orthopedic Surgery - [place] 175 [facility] [address] [place] [phone] Mary Kate Torrez PA 174 [facility] [address] [place] [address] 05/27/2025 12:00 PM EDT Office Visit Internal Medicine - [place] 175 [facility] [address] [place] [phone] Del Aparicio MD 175 [facility] [address] [place] [address] Scheduled Referrals Name Type Priority Associated Diagnoses Orde r Schedule Ambulatory referral to Vascular Surgery Outpatient Referral Routine Peripheral venous insufficiency 1 Occurrences starting 11/09/2024 until 11/09/2025 documented as of this encounter Visit Diagnoses Diagnosis Peripheral venous insufficiency- Primary Unspecified venous (peripheral) insufficiency Primary osteoarthritis of both feet documented in this encounter Care Teams Rnfa Relationship Specialty Start Date End Date Del Aparicio MD [address] [place] [address] PCP - General Internal Medicine 08/06/18 documented as of this encounter
--- OUTSIDE RECORDS SUMMARY | 2024-12-07 12:51 | XMS_ITS | Encounter Summary ---
Author Organization [facility] Address [address] [place] [address] Care Team Providers Care Cotton Machine Operator Name Role Phone Del Aparicoi MD Primary Care Provider [phone] Reason for Visit * Reason Onset Date Comments faxed order 11/24/2024 L&C Encounter Details Date Type Department Care Team (Late st Contact Info) Description 11/24/2024 Telephone Internal Medicine - [address] [place] [phone] Rachel Jean MA faxed order (L&C) Social History Tobacco Use Types Packs/Day Years [...] on file documented as of this encounter Progress Notes * Rachel Jean MA - 11/29/2024 9:42 AM EST Faxed to L&C [phone] * Rachel Jean MA - 11/24/2024 2:14 PM EST Blake confirmation of order [id number], underpad Placed in providers folder for signature. documented in this encounter Plan of Treatment Upcoming Encounters Date Type Department Care Team (Late st Contact Info) Description 12/27/2024 2:00 PM EDT Office Visit Orthopedic Surgery - [place] [address] [place] [phone] Mary Kate Torrez PA [address] [place] [phone] 05/27/2025 12:00 PM EDT Office Visit Internal Medicine - [place] [address] [place] [phone] Del Aparicio MD 175 [facility] [address] [place] [address] documented as of this encounter Visit Diagnoses Not on filedocumented in this encounter Care Teams Cotton Machine Operator Relationship Specialty Start Date End Date Del Aparicio MD 175 [facility] [address] [place] [address] PCP - General Internal Medicine 08/06/18 documented as of this encounter
--- OUTSIDE RECORDS SUMMARY | 2024-12-07 12:51 | XMS_ITS | Encounter Summary ---
Author Organization [facility] [address] Address [address] [place] [address] Care Team Providers Care Chassis Engineer Name Role Phone Del Aparicio MD Primary Care Provider [phone] Reason for Visit * Reason Onset Date Comments Ronda Chowdary notes 11/23/2024 Encounter Details Date Type Department Care Team ([facility] st Contact Info) Description 11/23/2024 Telephone Internal Medicine - [place] 175 [facility] [address] [place] [phone] Del Aparicio MD 175 [facility] [address] [place] [address] Ronda Chowdary notes Social History Tobacco Use Types Packs/Day Years [...] as of this encounter Progress Notes * Jovanny Peña MA - 11/23/2024 2:34 PM EST Faxed requested information to number provided. * Deja Mcintyre - 11/23/2024 2:08 PM EST [facility] office called and requested the patients last office visit notes and most recent labs. Please advise documented in this encounter Plan of Treatment Upcoming Encounters Date Type Department Care Team (Late st Contact Info) Description 12/27/2024 2:00 PM EDT Office Visit Orthopedic Surgery - [place] [address] [place] [phone] Mary Kate Torrez PA [address] [place] [address] 05/27/2025 12:00 PM EDT Office Visit Internal Medicine - [place] [address] [place] [phone] Del Aparicio MD 175 [facility] [address] [place] [address] documented as of this encounter Visit Diagnoses Not on filedocumented in this encounter Care Teams Chassis Engineer Relationship Specialty Start Date End Date Del Aparicio MD 175 [facility] [address] [place] [address] PCP - General Internal Medicine 08/06/18 documented as of this encounter
--- OUTSIDE RECORDS SUMMARY | 2024-12-07 12:51 | XMS_ITS | Encounter Summary ---
Author Organization [facility] Address [address] [place] [address] Care Team Providers Care Die Cut Operator Name Role Phone Del Aparicio MD Primary Care Provider [phone] Reason for Referral * Consultation (Routine) - Authorized Specialty Diagnoses / Procedures Referred By Deejay stanley Referred To Contact Physical Therapy Diagnoses Bilateral shoulder pain, unspecified chronicity Mary Kate Torrez PA 174 [facility] [address] [place] [address] Phone: tel: fax: [facility] [address] [address] Phone: tel: fax: Referral ID Status Reason Start Date Expiration Date Visits Requested Visits Authorized [id number] Authorized Specialty Services Required 11/29/2024 11/29/2025 1 1 Reason for Visit * Reason Comments Pain Encounter Details Date Type Department Care Team (Late st Contact Info) Description 11/29/2024 2:00 PM EST Office Visit Orthopedic Surgery - [place] 175 [facility] [address] [place] [address] Mary Kate Torrez PA 174 [facility] [address] [place] [address] Bilateral shoulder pain, unspecified chronicity (Primary Dx); Pain and swelling of right wrist; Numbness and tingling in left hand Social History Tobacco Use Types Packs/Day Years [...] - Inhaled Oxygen Concentration - - Weight 123 kg (271 lb) 11/29/2024 2:04 PM EST Height 154.9 cm (5' 1 ) 11/29/2024 2:04 PM EST Body Mass Index 51.21 11/29/2024 2:04 PM EST documented in this encounter Ordered Prescriptions Prescription Sig Dispense Quantity Refills Last Filled Start Date End Date methylPREDNISolon e (MEDROL DOSPAK) 4 mg tablet Follow schedule on package instructions 1 each 11/29/2024 documented in this encounter Progress Notes * ULYSSES Chow - 11/29/2024 2:00 PM EST Referring MD:No ref. provider found Susana Santos is a 69 y.o. year old female who presents for consultation regarding Chief Complaint Patient presents with Right Wrist - Pain . HPI: 69-year-old [id number] female with chief complaint of right wrist pain and swelling that has been ongoing for about 3 weeks. No injury. She has had an insidious onset of swelling over the volar radial side of the right wrist as well as some pain over right thumb basal joint. She has had no treatment for this. Other than taking Tylenol for pain. No numbness or tingling on the right but shedoes report some intermittent numbness tingling at the left hand that could happen at night. The other issue she mentioned and that she was initially referred for was bilateral shoulder pain and stiffness that has been on and off for about a year. No injury to her shoulders. We did focus on the wrist today but also did examine bilateral shoulders. No diabetes. PAST MEDICAL HISTORY: Past Medical History: Diagnosis Date History of TIA (transient ischemic attack) 11/11/2016 DX:History of TIA (transient ischemic attack) Hyperlipidemia 05/14/2018 DX:Hyperlipidemia Hypertension 06/25/2018 DX:Hypertension Hypothyroidism 05/04/2018 DX:Hypothyroidism Lichen planus 05/14/2018 DX:Lichen planus Morbid obesity with body mass index (BMI) of 40.0 to 49.9 ([facility]) 08/25/2018 DX:Morbid obesity with body mass index (BMI) of 40.0 to 49.9 ([facility]) Stress incontinence in female 03/22/2015 DX:Stress incontinence in female Viral upper respiratory tract infection 08/06/2018 DX:Viral upper respiratory tract infection Vitamin D deficiency 08/25/2018 DX:Vitamin D deficiency PAST SURGICAL HISTORY: Past Surgical History: Procedure Laterality Date CHOLECYSTECTOMY PROCEDURE: HISTORICAL CHOLECYSTECTOMY SOCIAL HISTORY: Social History Occupational History Not on file Tobacco Use Smoking status: Never Smokeless tobacco: Never Substance and Sexual Activity Alcohol use: No Drug use: No Sexual activity: Not on file FAMILY HISTORY: Family History Problem Relation Name Age of Onset No Known Problems Father Family Status Relation Name Status Father Mother No partnership data on file ACTIVE PROBLEMS LIST: Patient Active Problem List Diagnosis Aortic dilatation ([facility]) Hyperlipidemia Hypertension Hypothyroidism Lichen planus Morbid obesity with body mass index (BMI) of 40.0 to 49.9 ([facility]) Obstructive sleep apnea Palpitations Primary osteoarthritis of left knee Primary osteoarthritis of right knee Stress incontinence in female Viral upper respiratory tract infection Vitamin D deficiency Class 3 severe obesity without serious comorbidity with body mass index (BMI) of 50.0 to 59.9 in adult ([facility]) ACTIVE MEDICATIONS: Current Outpatient Medications on File Prior to Visit Medication Sig Dispense Refill amLODIPine (NORVASC) 5 mg tablet TAKE 1 TABLET BY MOUTH DAILY 90 tablet 1 aspirin 81 mg EC tablet Take 1 tablet (81 mg total) by mouth 1 (one) time each day. (Patient not taking: Reported on 11/29/2024) benzonatate (TESSALON) 200 mg capsule Take 1 capsule (200 mg total) by mouth 3 (three) times a day if needed for cough. Do not crush or chew. (Patient not taking: Reported on 11/29/2024) 21 capsule 0 calcium carbonate-vitamin D3 (Calcium [...] every 7 (seven) days. 4 mL 0 No current facility-administered medications on file prior to visit. ALLERGIES: No Known Allergies PHYSICAL EXAM: Visit Vitals Ht 1.549 m (61 ) Wt 123 kg (271 lb) BMI 51.21 kg/m?? Smoking Status Never BSA 2.15 m?? APPEARANCE: Alert and in no acute distress EYES: conjunctivae and sclerae normal EXTREMITIES: Extremities warm and well perfused without clubbing, cyanosis, or edema Right wrist no swelling at the radiocarpal joint but she does have soft tissue swelling/prominence at the volar radial side of the right wrist, questionable ganglion cyst. It is tender to touch. She does have some mild pain with wrist flexion on the right. Mild tenderness over FCR tendon. Prominence to right thumb basal joint pain to palpation over right thumb basal joint but negative grind test.She make a full fist on the right with hypothenar, thenar interosseous musculature intact. NegativeTinel's, Phalen's and Durkan's test on the right. On the left there is no swelling of the wrist andshe has full range of motion of the left wrist but she did have a positive Tinel's and Phalen's test on the left, mildly. Bilateral shoulders active forward flexion is 150 ER 50. Passively forward flexion is 160, ER 50 and abduction external rotation 90 all bilaterally. She does have stiffness throughout range of motionof bilateral shoulders negative drop arm test. Strength intact in IR ER supraspinatus. She did havea positive Neer's and Lyon test right greater than left. VASCULAR:well perfused with normal pulses in the distal extremities and no peripheral edema noted NEURO: Awake, alert and oriented SKIN: Skin color, texture, turgor normal. No rashes or lesions. PSYCH: does not appear depressed or anxious and oriented to time, place and person LABS: none IMAGING: XR Wrist 3+ Views Right Date of Visit: 11/29/2024 Reason for visit: Right wrist pain Views: AP, lateral, oblique right wrist Comparison: None Findings: No fracture, dislocation or lytic lesions noted. Mild arthritic changes of radiocarpal joint. Mild to moderate right thumb basal joint arthritis. 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 No acute findings. ASSESSMENT AND PLAN: 1. Bilateral shoulder pain, unspecified chronicity 2. Pain and swelling of right wrist The details of the visit were reviewed with the patient. Pertinent history, and objective findings were reviewed, along with the diagnoses: Right wrist pain with differential diagnosis tendinitis, osteoarthritis and ganglion cyst. The swelling at the volar aspect of the right wrist I recommended heat and an Tommy wrap. Patient states she cannot take NSAIDs. We discussed a short course of a Medrol Dosepak to help with inflammation of the wrist and also shoulders. She was prescribed this. For the left hand numbness tingling probable carpal tunnel syndrome and did discuss nighttime bracing. Per bilateral shoulders we held off on getting x-rays today as we focused on the wrist. But differential diagnosis is tendinitis versus osteoarthritis. I did recommend physical therapy for bilateral shoulders and prescription was given. She will follow-up in 4 to 6 weeks time to see how the wrist is doing and at that time I will get bilateral shoulder x-rays as well. Rafchristiana Edward Santos acknowledges understanding of the above plan and agrees to follow recommendationsand/or take medications as prescribed. ULYSSES Chow cc: No ref. provider found documented in this encounter Plan of Treatment Upcoming Encounters Date Type Department Care Team (Late st Contact Info) Description 12/27/2024 2:00 PM EDT Office Visit Orthopedic Surgery - [address] [place] [phone] Mary Kate Torrez PA 174 [facility] [address] [place] [address] 05/27/2025 12:00 PM EDT Office Visit Internal Medicine - [place] 175 [facility] [address] [place] [address] Del Aparicio MD 175 [facility] [address] [place] [address] Scheduled Referrals Name Type Priority Associated Diagnoses Order Schedule Ambulatory referral to Physical Therapy and Athletic Training Outpatient Referral Routine Bilateral shoulder pain, unspecified chronicity 1 Occurrences starting 11/29/2024 until 11/29/2025 documented as of this encounter Results * XR Wrist 3+ Views Right [...] right thumb basal joint. No acute findings. us Mary Kate ARORA IMG XR PROCEDURES Final Resul t documented in this encounter Visit Diagnoses Diagnosis Bilateral shoulder pain, unspecified chronicity- Primary Pain and swelling of right wrist Numbness and tingling in left hand Disturbance of skin sensation documented in this encounter Orders Imaging Orders Without Results Count Last Order ed Date First Ordered Date XR SHOULDER 2+ VIEWS BILAT 1 11/29/2024 documented in this encounter Care Teams Die Cut Operator Relationship Specialty Start Date End Date Del Aparicio MD 175 [facility] [address] [place] [address] PCP - General Internal Medicine 08/06/18 documented as of this encounter
--- OUTSIDE RECORDS SUMMARY | 2024-12-07 12:51 | XMS_ITS | Encounter Summary ---
Author Organization [facility] Address [address] [place] [address] Care Team Providers Care Director Manufacturing Engineering Name Role Phone Del Aparicio MD Primary Care Provider [phone] Reason for Referral * Consultation (Urgent) - Authorized Specialty Diagnoses / Procedures Referred By Contac t Referred To Contact Nephrology Diagnoses Primary hypertension Del Aparicio MD 175 [facility] 200 [place] [address] Phone: tel: [place]: [place] [address] [place] [address] [address] [place] [address] Phone: tel: fax: Referral ID Status Reason Start Date Expiration Date Visits Requested Visits Authorized [id number] Authorized Specialty Services Required 11/18/2024 11/18/2025 1 1 * Consultation (Routine) - Authorized Specialty Diagnoses / Procedures Referred By Contact Referred To Contact Orthopaedics / Orthopaedic Surgery Diagnoses Chronic pain of both shoulders Del Aparicio MD 175 [facility] 200 [place] [address] Phone: tel: fax: Orthopedic Surgery [place] [address] [address] Phone: tel: fax: Referral ID Status Reason Start Date Expiration Date Visits Requested Visits Authorized [id number] Authorized Specialty Services Required 11/18/2024 11/18/2025 1 1 Reason for Visit * Reason Comments Follow-up Encounter Details Date Type Department Care Team (Late st Contact Info) Description 11/18/2024 1:00 PM EST Office Visit Internal Medicine - [place] 175 [facility] [address] [place] [address] Del Aparicio MD 175 [facility] [address] [place], [place] [phone] Primary hypertension (Primary Dx); Hypercholesterolemia; Hypothyroidism, unspecified type; Chronic pain of both shoulders Social History Tobacco Use Types Packs/Day Years [...] Concentration - - Weight 123 kg (271 lb 9.6 oz) 11/18/2024 1:15 PM EST Height - - Body Mass Index 51.35 11/09/2024 1:29 PM EST documented in this encounter Progress Notes * Del Aparicio MD - 11/18/2024 1:00 PM EST COMPLAINT medication review and testing IDENTIFIER: Tonya Santos is a 69 y.o. old female. HPI: Hypertension is not under control on 4 medications .hyperlipidemia ,stable. hypothyroidism is stable. ROS: GENERAL: No malaise, significant weight loss or fever RESPIRATORY: No cough, wheezing or shortness of breath CARDIOVASCULAR: No chest pain, leg swelling or palpitations GI: No abdominal discomfort, blood in stools or black stools PAST MEDICAL HISTORY: Patient Active Problem List Diagnosis Date Noted Class 3 severe obesity without serious comorbidity with body mass index (BMI) of 50.0 to 59.9 in adult ([facility]) 08/04/2024 Primary osteoarthritis of left knee 06/24/2023 Primary osteoarthritis of right knee 06/24/2023 Aortic dilatation ([facility]) 06/13/2021 Palpitations 06/13/2021 Obstructive sleep apnea 05/15/2020 Morbid obesity with body mass index (BMI) of 40.0 to 49.9 ([facility]) 08/25/2018 Vitamin D deficiency 08/25/2018 Viral upper respiratory tract infection 08/06/2018 Hypertension 06/25/2018 Hyperlipidemia 05/14/2018 Lichen planus 05/14/2018 Hypothyroidism 05/04/2018 Stress incontinence in female 03/22/2015 Past Surgical History: Procedure Laterality Date CHOLECYSTECTOMY PROCEDURE: HISTORICAL CHOLECYSTECTOMY SOCIAL HISTORY: Social History Tobacco Use Smoking status: Never Smokeless tobacco: Never Substance Use Topics Alcohol use: No FAMILY HISTORY: Family History Problem Relation Name Age of Onset No Known Problems Father MEDICATIONS DISCONTINUED/REORDERED: There are no discontinued medications. ACTIVE MEDICATIONS: Outpatient Medications Marked as Taking for the 11/18/24 encounter (Office Visit) with Del Aparicio MD Medication Sig Dispense Refill amLODIPine (NORVASC) 5 [...] 0 ALLERGIES: No Known Allergies PHYSICAL EXAM: Vitals: 11/18/24 1332 BP: (!) 158/80 Pulse: Temp: SpO2: APPEARANCE: Alert and in no acute distress EARS: External ears normal. HEART: RRR with normal S1 and S2, no murmurs LUNG: clear to auscultation LABS: No results found for: WBC , HGB , HCT , MCV No results found for: NA , K , CO2 , CL , BUN , GLU , ALB , ALKPHOS , TP No results found for: TSH Lab Results Component Value Date CHOL 192 05/24/2024 LDL 117 (A) 05/24/2024 HDL 53 05/24/2024 TRIG 114 05/24/2024 No components found for: URINELEUK , URINENITR , URINEPRO , URINEPH , URINEBLD , URINESG , URINEKET , URINEBILI , URINEGLUC IMAGING: IMPRESSION: 1. Primary hypertension Ambulatory referral to Nephrology 2. Hypercholesterolemia 3. Hypothyroidism, unspecified type 4. Chronic pain of both shoulders Ambulatory referral to Orthopedic PLAN: Hypertension is not under control on lisinopril, labetalol and hydralazine and amlodipine. Hyperlipidemia ,stable on pravastatin .hypothyroidism, stable on Levoxyl. check CBC, CMP, TSH, lipid panel. Shoulder pain for long-term refer to orthopedic ,could be rotator cuff tendinitis. documented in this encounter Plan of Treatment Upcoming Encounters Date Type Department Care Team (Late st Contact Info) Description 12/27/2024 2:00 PM EDT Office Visit Orthopedic Surgery - [address] [place] [address] Mary Ktae Torrez PA 174 [facility] 140 [place] [address] 05/27/2025 12:00 PM EDT Office Visit Internal Medicine - [place] 175 [facility] 200 [place] [address] Del Aparicio MD 175 [facility] 200 [place] [address] Scheduled Referrals Name Type Priority Associated Diagnoses Orde r Schedule Ambulatory referral to Orthopedic Outpatient Referral Routine Chronic pain of both shoulders 1 Occurrences starting 11/18/2024 until 11/18/2025 Ambulatory referral to Nephrology Outpatient Referral Routine Primary hypertension 1 Occurrences starting 11/18/2024 until 11/18/2025 documented as of this encounter Visit Diagnoses Diagnosis Primary hypertension- Primary Unspecified essential hypertension Hypercholesterolemia Pure hypercholesterolemia Hypothyroidism, unspecified type Chronic pain of both shoulders documented in this encounter Care Teams Director Manufacturing Engineering Relationship Specialty Start Date End Date Del Aparicio MD 175 [facility] 200 [place] [address] PCP - General Internal Medicine 08/06/18 documented as of this encounter
== END 2024-12-07 11:31 | disposition home or self-care (01) ==
LOC: HO.HKAS 10:42
PROVIDERS: PCP Internal Medicine; Referring Provider Internal Medicine; Visit Provider Internal Medicine Nephrology
DX: I10 Essential (primary) hypertension (principal); I77.819 Aortic ectasia, unspecified site
CPT/HCPCS: 99204

== ENCOUNTER 2025-01-11 11:55 | Outpatient (AMB) | payer OTHER, SELFPAY ==
--- NOTE | 2025-01-11 11:59 | HO.NEPHOV_ITS ---
Vital Signs 01/11/25 12:01 Height 5 ft 1 in Weight 276 lb 8 oz BMI 52.2 BP 160/90 H Blood Pressure Location Lt radial Position Sitting Pulse 67 Pulse Source Pulse Oximeter Pulse Oximetry (%) 97 Oxygen Delivery Method Room Air Intake Visit Reasons: [address] [facility] [address] Mechanical Engineer Required: No Accompanied by: Spouse Allergies No Known Allergies Allergy (Verified 01/11/25 12:00) HPI Comments Details: I had the privilege of seeing Tonya in follow up for her [id number] blood pressure. She has hypertension for a long time and has been on multiple medications. Number medications and its doses has been steadily going up. She is not strict with a low-sodium diet and has struggled all along to lose weight. She has obstructive sleep apnea and does not wear any CPAP. She has taken amlodipine in the past which has caused her ankle swelling and had been discontinued. She has history of aortic root dilatation by echocardiogram. She denies any coronary artery disease, congestive heart failure, CVA, peripheral arterial disease or excessive nonsteroidal anti-inflammatory medication use. She has no history of hypokalemia, uncontrolled thyroid disorders, hypercalcemia, renal dysfunction. She claims to be compliant with medications. She has strong family history of hypertension. [facility] Medical History (Updated 12/07/24 @ 11:26 by Shaun Devine MD) Hyperlipidemia Aortic dilatation Vitamin D deficiency Viral upper respiratory tract infection Stress incontinence in female Primary osteoarthritis of right knee Primary osteoarthritis of left knee Palpitations Obstructive sleep apnea Morbid obesity with body mass index (BMI) of 40.0 to 49.9 Lichen planus Hypothyroidism Hypertension Surgical History (Updated 12/07/24 @ 10:45 by Trina Warren MA) H/O colonoscopy History of cholecystectomy Family History (Updated 12/07/24 @ 10:44 by Trina Warren MA) Mother Heart disease Hypertension Social History (Updated 12/07/24 @ 10:44 by Trina Warren MA) Alcohol intake: never Patient Tobacco Use Status: Never used Tobacco Review of Systems Const All systems reviewed & are unremarkable except as noted in HPI and below Physical Exam Const General: comfortable and no acute distress Orientation/consciousness: patient oriented x3 HEENT Head: Yes normocephalic Mouth: Normal oral and palatal mucosa present Eyes EOM: EOMs intact bilaterally Neck Neck: Yes supple Resp Auscultation: clear to auscultation bilaterally Cardio Jugular venous distension: no JVD Rate: regular rate GI Palpation (GI): Soft to palpation Auscultation: normal bowel sounds General: Yes no CVA tenderness Back/Spine/Pelvis Back: no CVA tenderness Skin General skin exam: no rashes or lesions noted Neuro General: patient oriented x3 and moves all extremities Extrem General: Yes no pedal edema Results Reviewed Nephrology Results: Sodium 144 mmol/L (135-145) 12/07/24 Potassium 4.8 mmol/L (3.3-5.1) 12/07/24 Chloride 108 mmol/L (96-108) 12/07/24 Carbon Dioxide 28 mmol/L (22-29) 12/07/24 BUN 15 mg/dL (9-16) 12/07/24 Creatinine 0.83 mg/dL (0.5-1.4) 12/07/24 Calcium 9.7 mg/dL (8.4-10.2) 12/07/24 Urine Creatinine 118.55 mg/dL 12/07/24 Protein/Creatinin Ratio 0.15 (<0.2) 12/07/24 Assessment & Plan Assessment & Plan (1) Hypertension: Code(s): I10 - Essential (primary) hypertension Category: Medical Qualifiers: Hypertension type: primary hypertension Qualified Code(s): I10 - Essential (primary) hypertension (2) Aortic dilatation: Code(s): I77.819 - Aortic ectasia, unspecified site Category: Medical Plan Tonya clearly will benefit from weight loss and lifestyle modification including low-sodium diet. She needs to be compliant with her CPAP. She could continue her current dosage of labetalol and lisinopril and hydralazine 50 mg twice daily. She may be having some mineralocorticoid excess and so I introduced spironolactone 25 mg daily( common side effects explained). She has not had any lab work recently and as a result I did not initiate her on spironolactone. Her blood pressure needs to be maintain a goal given her aortic root dilatation. She has history of edema from calcium channel michael. I will consider doing a Doppler of her renal arteries and initiating her on chlorthalidone and combining with the lisinopril based on evolving data. She has no history of retinopathy, renal dysfunction, proteinuria, diabetes mellitus, coronary artery disease. All these have been explained in detail. Answered all questions. Orders: Orders Creatinine 6 Weeks I10 - Essential (primary) hypertension, I77.819 - Aortic ectasia, unspecified site Blood Urea Nitrogen 6 Weeks I10 - Essential (primary) hypertension, I77.819 - Aortic ectasia, unspecified site Electrolytes 6 Weeks I10 - Essential (primary) hypertension, I77.819 - Aortic ectasia, unspecified site Medications: New spironolactone 25 mg PO DAILY 90 tabs 3RF Changed From hydralazine PO BID To hydralazine 50 mg PO BID 90 days 180 tabs 3RF Coding Level of Care Code Est Pt Level 4 (83314) Diagnoses Primary hypertension I10 Hypertension type: primary hypertension Aortic dilatation I77.819
[2025-01-11 12:01] VITALS: BP 160/90; PULSE 67; O2SAT 97; BMI 52.2
--- OUTSIDE RECORDS SUMMARY | 2025-01-11 14:44 | XMS_ITS | Clinical Summary ---
Author Organization 175 [facility] Address 175 [place] [address] Phone Care Team Providers Care Well Point Pumping Supervisor Name Role Phone Del Aparicio MD Primary Care Provider [phone] Allergies No known active allergies Medications calcium carbonate-vitami n D3 (Calcium 600 + D,3,) 600 mg-5 mcg (200 unit) per tablet TAKE 1 TABLET BY MOUTH DAILY 024 Active medical supply, miscellaneous (MISCELLANEOUS MEDICAL SUPPLY MISC) INCONTINENCE SUPPLY DISPOSABLE (DISPOSABLE LINERS) MISC 1 Each by Does not apply route 3 times daily. 023 Active fluticasone propionate (FLONASE) 50 mcg/actuation nasal spray Administer 2 sprays into each nostril 1 (one) time each day. 023 Active OMEGA-3 FATTY ACIDS-FISH OIL ORAL Take by mouth daily. Active aspirin 81 mg EC tablet Take 1 tablet (81 mg total) by mouth 1 (one) time each day. 019 Active amLODIPine (NORVASC) 5 mg tablet TAKE 1 TABLET BY MOUTH DAILY 90 tablet 1 024 Active Additional Information Patient not taking.Reported on 12/27/2024 lisinopril (PRINIVIL,ZESTRI L) 40 mg tablet TAKE 1 TABLET BY MOUTH DAILY 90 tablet 1 024 Active hydrALAZINE (APRESOLINE) 25 mg tablet Take 1 tablet (25 mg total) by mouth 2 (two) times a day. 180 each 3 024 Active semaglutide (Wegovy) 0.25 mg/0.5 mL injection penIndications:C lass 3 severe obesity without serious comorbidity with body mass index (BMI) of 50.0 to 59.9 in adult, unspecified obesity type Inject 0.25 mg under the skin every 7 (seven) days. 4 mL Active benzonatate (TESSALON) 200 mg capsule Take 1 capsule (200 mg total) by mouth 3 (three) times a day if needed for cough. Do not crush or chew. 21 capsule Active levothyroxine (SYNTHROID, LEVOTHROID) 112 mcg tablet TAKE 1 TABLET BY MOUTH DAILY 90 tablet 1 Active methylPREDNISolo ne (MEDROL DOSPAK) 4 mg tablet Follow schedule on package instructions 1 each Active pravastatin (PRAVACHOL) 20 mg tablet TAKE 1 TABLET BY MOUTH DAILY 90 tablet 1 Active labetaloL (NORMODYNE) 200 mg tablet Take 1 tablet (200 mg total) by mouth 2 (two) times a day. 60 tablet 1 Active pravastatin (PRAVACHOL) 20 mg tablet Take 1 tablet (20 mg total) by mouth 1 (one) time each day. 024 2024 Discontinued labetaloL (NORMODYNE) 200 mg tablet Take 1 tablet (200 mg total) by mouth 2 (two) times a day. 60 tablet 1 025 2024 Discontinued(R eorder) Active Problems Problem Noted Date Diagnosed Date Class 3 severe obesity witho ut serious comorbidity with body mass index (BMI) of 50.0 to 59.9 in adult 08/04/2024 Primary osteoarthritis of left knee 06/24/2023 Primary osteoarthritis of right knee 06/24/2023 Aortic dilatation (CMS/HCC V24) 06/13/2021 Overview (07/23/2024): Last Assessment & Plan: Patient's last echocardiogram showing an ascending aortic measurement 3.8 cm. Continue to monitor. Palpitations 06/13/2021 Overview (07/23/2024): Last Assessment & Plan: Patient denies any recurrent palpitations. She is on labetalol 200 mg twice daily. Obstructive sleep apnea 05/15/2020 Overview (07/23/2024): SMS Home Sleep Apnea Test: Date 05/09/2020; BMI 45; RDI 77, AHI 77; average oxygen saturation 93% (lowest 73% without saturations <88% for 5% or more of study) - Obstructive Sleep Apnea - severe; without sleep related hypoventilation by 2019 home sleep apnea test. Morbid obesity with body mas s index (BMI) of 40.0 to 49.9 ([facility] V24, [facility] V28) 08/25/2018 Vitamin D deficiency 08/25/2018 Viral upper [...] Encounters Date Type Department Care Team Description 12/27/2024 2:00 PM EDT Office Visit Orthopedic Surgery [address] [phone] Mary Kate Torrez PA Bilateral shoulder pain, unspecified chronicity (Primary Dx); Carpal tunnel syndrome of left wrist 11/29/2024 2:00 PM EST Office Visit Orthopedic Surgery [address] [phone] Mary Kate Torrez PA Bilateral shoulder pain, unspecified chronicity (Primary Dx); Pain and swelling of right wrist; Numbness and tingling in left hand 11/24/2024 Telephone Internal Medicine [facility] 175 [facility] [address] [place] [address] Rachel Jean MA faxed order (L&C) 11/23/2024 Telephone Internal Medicine [facility] 175 [facility] [address] [place] [phone] Del Aparicio MD Joseph: Epi notes 11/18/2024 1:00 PM EST Office Visit Internal Medicine [facility] 175 [facility] [address] [place] [address] Del Aparicio MD Primary hypertension (Primary Dx); Hypercholesterolemia; Hypothyroidism, unspecified type; Chronic pain of both shoulders 11/09/2024 1:15 PM EST Consult Orthopedic Surgery [facility] 250 175 [facility] [address] [place] [phone] Zechariah Gould, DPM Peripheral venous insufficiency (Primary Dx); Primary osteoarthritis of both feet from Last 3 Months Immunizations Name Administration [...] s index (BMI) of 40.0 to 49.9 (CMS/HCC V24, CMS/HCC V28) 08/25/2018 DX:Morbid obesity with body mass index (BMI) of 40.0 to 49.9 (HCC) Stress incontinence in female 03/22/2015 DX :Stress [...] - - Weight 123 kg (271 lb) 12/27/2024 2:12 PM EDT Height 154.9 cm (5' 0.98 ) 12/27/2024 2:12 PM ED T Body Mass Index 51.23 12/27/2024 2:12 PM EDT Plan of Treatment Upcoming Encounters Date Type Department Care Team (Late st Contact Info) Description 02/04/2025 11:00 AM EDT Consult Vascular Surgery - [place] 300 [facility] [address] [place] [address] Jacquie Rahman PA 300 [facility] [address] [place] [address] 05/27/2025 12:00 PM EDT Office Visit Internal Medicine - [place] 175 [facility] [address] [place] [phone] Del Aparicio MD 175 [facility] [address] [place] [address] Health Maintenance Due Date Last Done Comments Zoster Vaccines (1 of 2) 02/17/2004 RSV Immunization Adult Patients (1 - Risk 60-74 years 1-dose series) 2014 Hepatitis C Screening 09/07/2022 Social Influencers of Health Screening 09/07/2022 Breast Cancer Screening 11/25/2022 11/25/19, 04/06/2019, 04/03/2018 DTaP,Tdap,and Td Vaccines (2 - Td or Tdap) 09/29/2023 09/29/2013 COVID-19 Vaccine ( season) 2024 07/15/2022, 08/22/2021, 01/17/2021, Additional history exists Depression Screening 11/17/2024 11/17/2023 Falls Risk Assessment 11/17/2024 11/17/2023 Hypertension/CHF/CAD Annual BMP Blood Test 05/24/2025 05/24/2024, 05/24/2024 Influenza Vaccine (Season Ended) 2025 07/28/2022, 08/15/2021 Pneumococcal Vaccine: 50+ Years (3 of 3 [...] age to complete this topic Meningococcal B Vaccine Aged Out No l onger eligible based on patient's age to complete this topic RSV Immunization Patients Under 20 months Aged Out No longer eligible based on patient's age to complete this topic Varicella Vaccines Aged Out No longer eligible based on patient's age to complete this topic Procedures Procedure Name Priority Date/Time Associated Diagnosis Comments XR SHOULDER 2+ VIEWS BILAT Routine 12/27/2024 2:11 PM EDT Bilateral shoulder pain, unspecified chronicity EXTERNAL CLINICAL LAB 12/08/2024 EXTERNAL CLINICAL LAB 12/07/2024 XR WRIST 3+ VIEWS RIGHT Routine 11/29/2024 2:00 PM EST Pain and swelling of right wrist ANNUAL BMP BLOOD TEST Routine 05/24/2024 LIPID PANEL Routine 05/24/2024 DEPRESSION SCREENING Routine 11/17/2023 FALLS RISK ASSESSMENT Routine 11/17/2023 COLONOSCOPY Routine 07/18/2021 [facility] SCREENING DIGITAL Routine 11/25/2020 1:09 PM EST Encounter for screening mammogram for malignant neoplasm of breast [facility] DEXA AXIAL SKELETON Routine 04/03/2018 2:03 PM EDT Encounter for screening for osteoporosis from Last 3 Months or Most Recently Relevant to Health Maintenance Results * XR Shoulder 2+ Views bilat (12/27/2024 2:11 PM EDT) Anatomical Region Laterality Modality Upper Extremities, Shoulder Bilateral Comp uted Radiography Narrative 12/27/2024 3:19 PM EDT Date of Visit: 12/27/2024 Reason for visit: Bilateral shoulder pain Views: AP, Grashey, Y, axillary bilateral shoulders Comparison: None Findings: No fracture, dislocation or lytic lesions. ??Left shoulder mild arthritic changes at glenohumeral joint and AC joint. ??No proximal migration humeral head or calcifications. ??Right shoulder there is mild to moderate glenohumeral arthritis and subchondral bone cyst. ??No proximal leg or humeral head. ??No narrowing subacromial spaces bilaterally. 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 us Mary Kate ARORA IMG XR PROCEDURES Final Resul t * External clinical lab (12/08/2024) Only the most recent of2 resultswithin the time period is included. Jackie [facility] LAB BLOOD ORDERABLES Fin al Result * XR Wrist 3+ Views Right (11/29/2024 [...] right thumb basal joint. No acute findings. Result [facility] Mary Kate ARORA IMG XR PROCEDURES Final Resul t * Annual BMP Blood Test (05/24/2024) Pathologist [facility] Annual BMP Blood Test abstracted Result [facility] Provider HEALTH MAINTENANCE Final Result * (ABNORMAL) Lipid panel (05/24/2024) [facility] LDL/HDL Ratio 4 0 - 4 Triglycerides 114 0 - 150 mg/dL Cholesterol 192 0 - 200 mg/dL HDL 53 >=40 mg/dL LDL Cholesterol 117(A) 0 - 100 mg/dL Blood Venous blood specimen / Unknown Result [facility] LAB BLOOD ORDERABLES Tomasa l Result * Falls Risk Assessment (11/17/2023) [facility] Falls Risk Assessment abstracted Result [facility] Provider HEALTH MAINTENANCE Final Result * Depression Screening (11/17/2023) [facility] Depression Screening abstracted Result [facility] Provider HEALTH MAINTENANCE Final Result * Colonoscopy (07/18/2021) Colonoscopy no interpretation , abstracted Anatomical Region Laterality Modality Other us Historical Provider HEALTH MAINTENANCE Final Result * [facility] SCREENING DIGITAL (11/25/2020 1:09 PM EST) Anatomical Region Laterality Modality Mammography 11/23/2020 8:48 AM EST Narrative 11/25/2020 1:09 PM EST [facility] Diagnostic Imaging Department [address] [place] [address] Patient: ??WONG MARAVILLA ?/Age/Sex: 1955 - 65 - F Unit#: ??[id number] ? Location/Status: ??SPDIMAM/REG CLI ? Mnemonic/Ordering Site: ??DIGSC/SPMAM Ordering Physician: ??DEL APARICIO MD [facility] Screening Digital - 11/25/[address] EXAM: [facility] Screening Digital EXAM DATE AND TIME: 11/25/2020 8:33 AM HISTORY: ??Annual screening mammography. COMPARISON: ??04/06/2019 through 04/03/2018 TECHNIQUE: CC and MLO views of both breasts were obtained using full field digital mammography. Bilateral digital breast tomosynthesis was performed in the MLO projection. Computer aided detection with the [employer] 7.2-H was employed. TISSUE DENSITY: a. The [...] Routine screening mammogram BILATERAL in 1 year. [address]46, 21485 3341F, 7025F Dictating Physician: ??YAEL HICKS MD Electronically Signed by: ??YAEL HICKS MD Dic Date/Time: ??11/25/20 1307 Sign date/Time: ??11/25/20 1309 Procedure Note Jovanna Hicks MD - 09/17/2022 [facility] Diagnostic Imaging Department [address] [place] [id number] Patient: TAIWOJESUSHOSSEIN Edward /Age/Sex: 1955 - 65 - F Unit#: [id number] [facility] Mnemonic/Ordering Site: [facility] Ordering Physician: DEL APARICIO MD [facility] Screening Digital - 11/25/20 - 0832 EXAM: [facility] Screening Digital EXAM DATE AND TIME: 11/25/2020 8:33 AM HISTORY: Annual screening mammography. COMPARISON: 04/06/2019 through 04/03/2018 TECHNIQUE: CC and MLO views of both breasts were obtained using fullfield digital mammography. Bilateral digital breast tomosynthesis was performedin the MLO projection. Computer aided detection with the [employer] employed. TISSUE DENSITY: a. The breasts are [...] Routine screening mammogram BILATERAL in 1 year. [address]197, [address]1830 3341F, 7025F Dictating Physician: YAEL HICKS MD Electronically Signed by: YAEL HICKS MD Dic Date/Time: 11/25/20 1307 Sign date/Time: 11/25/20 1309 Del Aparicio MD IMG BI PROCEDURES Final Result * [facility] DEXA AXIAL SKELETON (04/03/2018 2:03 PM EDT) Anatomical Region Laterality Modality Mammography 04/03/2018 12:2 9 PM EDT Narrative 04/03/2018 2:03 PM EDT [facility] Diagnostic Imaging Department [address] [place] [address] Patient: ??WONG MARAVILLA ?/Age/Sex: 1955 - 63 - F Unit#: ??[id number] ? Location/Status: ??SPDIMAM/REG CLI ? Mnemonic/Ordering Site: ??MAMDEXAAX/SPMAM Ordering Physician: ??ZURI LONDON MD [facility] Dexa Axial Skeleton - 04/03/18 - 1330 [...] probability of hip fracture of 0.1%. Code 26469 Dictating Physician: ??RODRIGO TUCKER MD Electronically Signed by: ??RODRIGO TUCKER MD Dic Date/Time: ??04/03/18 1402 Sign date/Time: ??04/03/18 1403 Procedure Note Rodrigo Tucker MD - 09/17/2022 [facility] Diagnostic Imaging Department [address] [place] [address] Patient: WONG MARAVILLA Edward /Age/Sex: 1955 - 63 - F Unit#: [id number] Location/Status: SPDIMAM/REG CLI Mnemonic/Ordering Site: MAMDEXAAX/SPMAM Ordering Physician: UZRI LONDON MD [facility] Dexa Axial Skeleton - 04/03/180 HISTORY: The patient is a 63-year-old postmenopausal [...] density of the femurs bilaterally is 1.158 gm/[id number] is 115% of that of young normals [...] probability of hip fracture of 0.1%. Code 97140 Dictating Physician: RODRIGO TUCKER MD Electronically Signed by: RODRIGO TUCKER MD Dic Date/Time: 04/03/18 1402 Sign date/Time: 04/03/18 1403 Zuri London MD IMG BI PROCEDURES Final Result from Last 3 Months or Most Recently Relevant to Health Maintenance Insurance MEDICA[place] - [place] Advance Directives Documents on File Type Date Recorded Patient Termite Renewal Inspector Expl anation Health Care Decision (hx) 01/09/2015 [...] (hx) 10/06/2013 AD CHACON DIRECTIVE Care Teams Well Point Pumping Supervisor Relationship Specialty Start Date End Date Del Aparicio MD [address] [place] [id number] PCP - General Internal Medicine 08/06/18
== END 2025-01-11 12:25 | disposition home or self-care (01) ==
LOC: HO.HKAS 11:55
PROVIDERS: PCP Internal Medicine; Visit Provider Internal Medicine Nephrology
DX: I10 Essential (primary) hypertension (principal); I77.819 Aortic ectasia, unspecified site
CPT/HCPCS: 99214

== ENCOUNTER → 2025-01-11 11:55 | Outpatient (BNVA) | payer OTHER, SELFPAY | PROVIDERS: PCP Internal Medicine; Visit Provider Internal Medicine Nephrology | DX: I10 Essential (primary) hypertension (principal); I77.819 Aortic ectasia, unspecified site; G47.33 Obstructive sleep apnea (adult) (pediatric); Z99.89 Dependence on other enabling machines and devices | CPT/HCPCS: 99212 ==

== ENCOUNTER 2025-03-22 11:27 | Outpatient (AMB) | payer OTHER, SELFPAY ==
[2025-03-22 12:02] VITALS: BP 140/90; PULSE 60; O2SAT 98; BMI 51.8
--- NOTE | 2025-03-22 12:02 | HO.NEPHOV_ITS ---
Vital Signs 03/22/25 12:02 Height 5 ft 1 in Weight 274 lb 6 oz BMI 51.8 BP 140/90 H Blood Pressure Location Lt brachial Position Sitting Pulse 60 Pulse Source Pulse Oximeter Pulse Oximetry (%) 98 Oxygen Delivery Method Room Air Intake Visit Reasons: 2mon follow-up w/labs-LVM Intake Note: Patient here for a follow-up. Staffing Consultant Required: No Allergies No Known Allergies Allergy (Verified 03/22/25 12:04) Do you need a note to return to daycare/school/sports/work: No HPI Comments Details: Tonya was seen in follow up for her [id number]-km-[id number] blood pressure. She has hypertension for a long time and has been on multiple medications. Number medications and its doses has been steadily going up. She is not strict with a low-sodium diet and has struggled all along to lose weight. She has obstructive sleep apnea and does not wear any CPAP. She has taken amlodipine in the past which has caused her ankle swelling and had been discontinued. She has history of aortic root dilatation by echocardiogram. She denies any coronary artery disease, congestive heart failure, CVA, peripheral arterial disease or excessive nonsteroidal anti-inflammatory medication use. She has no history of hypokalemia, uncontrolled thyroid disorders, hypercalcemia, renal dysfunction. She claims to be compliant with medications. She has strong family history of hypertension. [facility] Medical History Hyperlipidemia Aortic dilatation Vitamin D deficiency Viral upper respiratory tract infection Stress incontinence in female Primary osteoarthritis of right knee Primary osteoarthritis of left knee Palpitations Obstructive sleep apnea Morbid obesity with body mass index (BMI) of 40.0 to 49.9 Lichen planus Hypothyroidism Hypertension Surgical History H/O colonoscopy History of cholecystectomy Family History Mother Heart disease Hypertension Social History Alcohol intake: never Patient Tobacco Use Status: Never used Tobacco Review of Systems Const All systems reviewed & are unremarkable except as noted in HPI and below Physical Exam Vital Signs: Last Vital Signs Pulse 60 03/22/25 12:02 BP 140/90 H 03/22/25 12:02 Pulse Ox 98 03/22/25 12:02 Oxygen Delivery Method Room Air 03/22/25 12:02 BMI result Body Mass Index 51.8 Const General: comfortable and no acute distress Orientation/consciousness: patient oriented x3 HEENT Head: Yes normocephalic Mouth: Normal oral and palatal mucosa present Eyes EOM: EOMs intact bilaterally Neck Neck: Yes supple Resp Auscultation: clear to auscultation bilaterally Cardio Jugular venous distension: no JVD Rate: regular rate GI Palpation (GI): Soft to palpation Auscultation: normal bowel sounds General: Yes no CVA tenderness Back/Spine/Pelvis Back: no CVA tenderness Skin General skin exam: no rashes or lesions noted Neuro General: patient oriented x3 and moves all extremities Extrem General: Yes no pedal edema Results Reviewed Nephrology Results: Sodium, (135-145) 144 mmol/L 12/07/24 Potassium, (3.3-5.1) 4.8 mmol/L 12/07/24 Chloride, (96-108) 108 mmol/L 12/07/24 Carbon Dioxide, (22-29) 28 mmol/L 12/07/24 BUN, (9-16) 15 mg/dL 12/07/24 Creatinine, (0.5-1.4) 0.83 mg/dL 12/07/24 Calcium, (8.4-10.2) 9.7 mg/dL 12/07/24 Urine Creatinine 118.55 mg/dL 12/07/24 Protein/Creatinin Ratio, (<0.2) 0.15 12/07/24 Assessment & Plan Assessment & Plan (1) Hypertension: Code(s): I10 - Essential (primary) hypertension Category: Medical Qualifiers: Hypertension type: primary hypertension Qualified Code(s): I10 - Essential (primary) hypertension Plan Tonya clearly will benefit from weight loss and lifestyle modification including low-sodium diet. She needs to be compliant with her CPAP. She could continue her current dosage of labetalol and lisinopril and hydralazine 50 mg twice daily. She may be having some mineralocorticoid excess and she should continue spironolactone 25 mg which was started at the last visit ( common side effects explained). Her blood pressure needs to be maintain a goal given her aortic root dilatation. She has history of edema from calcium channel michael. I will consider doing a Doppler of her renal arteries and initiating her on chl orthalidone and combining with the lisinopril based on evolving data. She has no history of retinopathy, renal dysfunction, proteinuria, diabetes mellitus, coronary artery disease. All these have been explained in detail. Answered all questions. Orders: Orders Creatinine 3 Months I10 - Essential (primary) hypertension Blood Urea Nitrogen 3 Months I10 - Essential (primary) hypertension Electrolytes 3 Months I10 - Essential (primary) hypertension Coding Level of Care Code Est Pt Level 4 (14020) Diagnoses Primary hypertension I10 Hypertension type: primary hypertension
--- OUTSIDE RECORDS SUMMARY | 2025-03-22 13:07 | XMS_ITS | Clinical Summary ---
Author Organization [address] [facility] Address [address] [place] [address] Phone Care Team Providers Care Marketing Outreach Coordinator Name Role Phone Del Aparicio MD Primary Care Provider [phone] Allergies No known active allergies Medications calcium carbonate-vitami n D3 (Calcium 600 + D,3,) 600 mg-5 mcg (200 unit) per tablet TAKE 1 TABLET BY MOUTH DAILY 024 Active medical supply, miscellaneous (MISCELLANEOUS MEDICAL SUPPLY MISC) INCONTINENCE SUPPLY DISPOSABLE (DISPOSABLE LINERS) MISC 1 Each by Does not apply route 3 times daily. 023 Active OMEGA-3 FATTY ACIDS-FISH OIL ORAL Take by mouth daily. Active aspirin 81 mg EC tablet Take 1 tablet (81 mg total) by mouth 1 (one) time each day. 019 Active amLODIPine (NORVASC) 5 mg tablet TAKE 1 TABLET BY MOUTH DAILY 90 tablet 1 Active Additional Information Patient not taking.Reported on 12/27/2024 hydrALAZINE (APRESOLINE) 25 mg tablet Take 1 tablet (25 mg total) by mouth 2 (two) times a day. 180 each 3 Active semaglutide (Wegovy) 0.25 mg/0.5 mL injection penIndications:C lass 3 severe obesity without serious comorbidity with body mass index (BMI) of 50.0 to 59.9 in adult, unspecified obesity type (CMS/HCC V24, CMS/HCC V28) Inject 0.25 mg under the skin every 7 (seven) days. 4 mL 11/15/2 024 Active Additional Information Patient not taking.Reported on 02/04/2025 benzonatate (TESSALON) 200 mg capsule Take 1 capsule (200 mg total) by mouth 3 (three) times a day if needed for cough. Do not crush or chew. 21 capsule Active Additional Information Patient not taking.Reported on 02/04/2025 levothyroxine (SYNTHROID, LEVOTHROID) 112 mcg tablet TAKE 1 TABLET BY MOUTH DAILY 90 tablet 1 Active methylPREDNISolo ne (MEDROL DOSPAK) 4 mg tablet Follow schedule on package instructions 1 each Active Additional Information Patient not taking.Reported on 02/04/2025 pravastatin (PRAVACHOL) 20 mg tablet TAKE 1 TABLET BY MOUTH DAILY 90 tablet 1 Active lisinopril (PRINIVIL,ZESTRI L) 40 mg tablet TAKE 1 TABLET BY MOUTH DAILY 90 tablet 1 025 Active spironolactone (ALDACTONE) 25 mg tablet Take 1 tablet (25 mg total) by mouth 1 (one) time each day. Active fluticasone propionate (FLONASE) 50 mcg/actuation nasal spray Administer 2 sprays into each nostril 1 (one) time each day. 16 g 3 025 Active loratadine (CLARITIN) 10 mg tablet Take 1 tablet (10 mg total) by mouth 1 (one) time each day. 90 each 3 025 2025 Active labetaloL (NORMODYNE) 200 mg tablet TAKE 1 TABLET(200 MG) BY MOUTH TWICE DAILY 60 tablet 1 Active labetaloL (NORMODYNE) 200 mg tablet Take 1 tablet (200 mg total) by mouth 2 (two) times a day. 60 tablet 1 025 2024 Discontinued Active Problems Problem Noted Date Diagnosed Date Class 3 severe obesity witho ut serious comorbidity with body mass index (BMI) of 50.0 to 59.9 in adult ([facility] V24, [facility] V28) 08/04/2024 Primary osteoarthritis of left knee 06/24/2023 Primary osteoarthritis of right knee 06/24/2023 Aortic dilatation ([facility] V24) 06/13/2021 Overview (07/23/2024): Last Assessment & Plan: Patient's last echocardiogram showing an ascending aortic measurement 3.8 cm. Continue to monitor. Palpitations 06/13/2021 Overview (07/23/2024): Last Assessment & Plan: Patient denies any recurrent palpitations. She is on labetalol 200 mg twice daily. Obstructive sleep apnea 05/15/2020 Overview (07/23/2024): [facility] Home Sleep Apnea Test: Date 05/09/2020; BMI 45; RDI 77, AHI 77; average oxygen saturation 93% (lowest 73% without saturations <88% for 5% or more of study) - Obstructive Sleep Apnea - severe; without sleep related hypoventilation by 2019 home sleep apnea test. Morbid obesity with body mas s index (BMI) of 40.0 to 49.9 ([facility] V24, [facility] V28) 08/25/2018 Vitamin D deficiency [...] Encounters Date Type Department Care Team Description 02/09/2025 Telephone Internal Medicine - [place] [address] [facility] [address] [place] [phone] Del Aparicio MD Allergies 02/04/2025 11:00 AM EDT Consult Vascular Surgery - [place] [address] [place] [phone] Jacquie Rahman PA Bilateral leg edema (Primary Dx); Peripheral venous insufficiency 02/01/2025 Telephone Internal Medicine - [place] [address] [facility] [address] [place] [phone] Ashley Woodard MA 12/27/2024 2:00 PM EDT Office Visit Orthopedic Surgery - [place] [address] [facility] [address] [place] [phone] Mary Kate Torrez PA Bilateral shoulder pain, unspecified chronicity (Primary Dx); Carpal tunnel syndrome of left wrist from Last 3 Months Immunizations Name Administration [...] mass index (BMI) of 40.0 to 49.9 ([facility]) Stress incontinence in female 03/22/2015 DX :Stress [...] Sign Reading Time Taken Comments Blood Pressure 148/85 02/04/2025 11:00 AM EDT Pulse 66 02/04/2025 11:00 AM EDT Temperature 36 C (96.8 F) 11/18/2024 1:15 PM EST Respiratory Rate - - Oxygen Saturation 98% 11/18/2024 1:15 PM EST Inhaled Oxygen Concentration - - Weight 125 kg (275 lb) 02/04/2025 11:00 AM EDT Height 154.9 cm (5' 1 ) 02/04/2025 11:00 AM EDT Body Mass Index 51.96 02/04/2025 11:00 AM EDT Plan of Treatment Upcoming Encounters Date Type Department Care Team (Late st Contact Info) Description 05/27/2025 12:00 PM EDT Office Visit Internal Medicine - [place] [address] [facility] [address] [place] [address] Del Aparicio MD 175 [facility] [address] [place] [address] 06/22/2025 1:30 PM EDT Ancillary Procedure [facility] - [facility] [address] [facility] [address] [place] [address] 08/09/2025 11:30 AM EST Office Visit Vascular Surgery - [place] [address] [facility] [address] [place] [address] Jacquie Rahman PA [address] [facility] [address] [place] [address] Health Maintenance Due Date Last Done Comments [...] PM EDT Bilateral shoulder pain, unspecified chronicity ANNUAL BMP BLOOD TEST Routine 05/24/2024 LIPID PANEL Routine 05/24/2024 DEPRESSION SCREENING Routine 11/17/2023 FALLS RISK ASSESSMENT Routine 11/17/2023 COLONOSCOPY Routine 07/18/2021 [facility] SCREENING DIGITAL Routine 11/25/2020 1:09 PM EST Encounter for screening mammogram for malignant neoplasm of breast [facility] DEXA AXIAL SKELETON Routine 04/03/2018 2:03 [...] Findings: No fracture, dislocation or lytic lesions. Left shoulder mild arthritic changes at glenohumeral joint and AC joint. No proximal migration humeral head or calcifications. Right shoulder there is mild to moderate glenohumeral arthritis and subchondral bone cyst. No proximal leg or humeral head. No narrowing subacromial spaces bilaterally. 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 Mary Kate ARORA IMG XR PROCEDURES Final Resul t * Annual BMP Blood Test (05/24/2024) Annual BMP Blood Test abstracted us Historical Provider HEALTH MAINTENANCE Final Result * (ABNORMAL) Lipid panel (05/24/2024) [facility] LDL/HDL Ratio 4 0 - 4 Triglycerides 114 0 - 150 mg/dL Cholesterol 192 0 - 200 mg/dL HDL 53 >=40 mg/dL LDL Cholesterol 117(A) 0 - 100 mg/dL Blood Venous blood specimen / Unknown Result [facility] Provider LAB BLOOD ORDERABLES Tomasa l Result * Falls Risk Assessment (11/17/2023) [facility] Falls Risk Assessment abstracted [facility] Provider HEALTH MAINTENANCE Final Result * Depression Screening (11/17/2023) Pathologist [facility] Depression Screening abstracted [facility] Provider HEALTH MAINTENANCE Final Result * Colonoscopy (07/18/2021) [facility] Colonoscopy no interpretation , abstracted Anatomical Region Laterality Modality Other [facility] Provider HEALTH MAINTENANCE Final Result * LIZZETH SCREENING DIGITAL (11/25/2020 1:09 PM EST) Anatomical Region Laterality Modality Mammography 11/23/2020 8:48 AM EST Narrative 11/25/2020 1:09 PM EST [facility] Diagnostic Imaging Department [address] [place], [place] [id number] Patient: WONG MARAVILLA /Age/Sex: 1955 - 65 - F Unit#: [id number] Location/Status: SPDIMAM/REG CLI Mnemonic/Ordering Site: DIGSC/SPMAM Ordering Physician: DEL APARICIO MD [facility] Screening Digital - 11/25/20831 EXAM: [facility] Screening Digital EXAM DATE AND TIME: 11/25/2020 8:33 AM HISTORY: Annual screening mammography. COMPARISON: 04/06/2019 through 04/03/2018 TECHNIQUE: CC and MLO views of both breasts were obtained using full field digital mammography. Bilateral digital breast tomosynthesis was performed in the MLO projection. Computer aided detection with the [employer].2-TraveDoc was employed. TISSUE DENSITY: a. The breasts are almost entirely fatty. FINDINGS: No suspicious masses, grouped microcalcifications, or areas of architectural distortion are seen. Benign rare calcifications bilaterally. The skin and vascularity are unremarkable. IMPRESSION: Stable mammographic appearance of the breasts. No evidence of malignancy is seen. A negative mammogram in the presence of a clinically suspicious palpable abnormality does not preclude the possibility of malignancy or alter the indications for biopsy. BI-RADS: Category 1: Negative RECOMMENDATION(S): 1: Routine screening mammogram BILATERAL in 1 year. 51501, 66035 3341F, 7025F Dictating Physician: YAEL HICKS MD Electronically Signed by: YAEL HICKS MD Dic Date/Time: 11/25/20 1307 Sign date/Time: 11/25/20 1309 Procedure Note Jovanna Hicks MD - 09/17/2022 [facility] Diagnostic Imaging Department [address] [place] [address] Patient: WONG MARAVILLA./Age/Sex: 1955 - 65 - F Unit#: [id number] Location/Status: SPDIMAM/REG CLI Mnemonic/Ordering Site: DIGIL/[facility] Ordering Physician: DEL APARICIO MD [facility] Screening Digital - 11/25/20831 EXAM: [facility] Screening Digital EXAM DATE AND TIME: 11/25/2020 8:33 AM HISTORY: Annual screening mammography. COMPARISON: 04/06/2019 through 04/03/2018 TECHNIQUE: CC and MLO views of both breasts were obtained using fullfield digital mammography. Bilateral digital breast tomosynthesis was performedin the MLO projection. Computer aided detection with the [employer] 7.2-Medioas employed. TISSUE DENSITY: a. The breasts are [...] Routine screening mammogram BILATERAL in 1 year. 43068, 58639 3341F, 7025F Dictating Physician: YAEL HICKS MD Electronically Signed by: YAEL HICKS MD Dic Date/Time: 11/25/20 1307 Sign date/Time: 11/25/20 1309 us Del Aparicio MD IMG BI PROCEDURES Final Result * [facility] DEXA AXIAL SKELETON (04/03/2018 2:03 PM EDT) Anatomical Region Laterality Modality Mammography 04/03/2018 12:2 9 PM EDT Narrative 04/03/2018 2:03 PM EDT [facility] Diagnostic Imaging Department [address] [place], [place] [phone] Patient: WONG MARAVILLA /Age/Sex: 1955 - 63 - F Unit#: [id number] Location/Status: SPDIMAM/REG CLI Mnemonic/Ordering Site: MAMDEXAAX/SPMAM Ordering Physician: ZURI LONDON MD [facility] Dexa Axial Skeleton - 04/03/181329 HISTORY: The patient is a 63-year-old postmenopausal female with clinical concern for metabolic bone disease. FINDINGS: Dual [...] 106% of that of age matched controls. This yields a T-score of 1.2 and a Z-score of 0.5 and there is therefore no evidence of osteoporosis or osteopenia here. IMPRESSION: 1. There is no evidence of osteoporosis or osteopenia. There has been a decrease of 0.7% in bone mineral density in the lumbar spine since the prior examination of 02/10/2015. There has been a decrease of 0.5% in bone mineral density in the right femur and a decrease of 1.8% in bone mineral density in the left femur. 2. FRAX analysis yields a 10-year probability of major osteoporotic fracture of 2.3% and a 10-year probability of hip fracture of 0.1%. Code 92800 Dictating Physician: RODRIGO TUCKER MD Electronically Signed by: RODRIGO TUCKER MD Dic Date/Time: 04/03/181401 Sign date/Time: 04/03/181402 Procedure Note Rodrigo Tucker MD - 09/17/2022 [facility] Diagnostic Imaging Department [address] [place] [address] Patient: WONG MARAVILLA Edward ArchuletaB./Age/Sex: 1955 - 63 - F Unit#: [id number] Location/Status: [facility] Mnemonic[facility] Ordering Physician: ZURI LONDON MD [facility] Dexa Axial Skeleton - 04/03/181329 HISTORY: [...] density of the femurs bilaterally is 1.158 gm/hn7kmnek is 115% of that of young normals [...] probability of hip fracture of 0.1%. Code 76549 Dictating Physician: RODRIGO TUCKER MD Electronically Signed by: RODRIGO TUCKER MD Dic Date/Time: 04/03/18 1402 Sign date/Time: 04/03/18 1403 Zuri London MD IMG BI PROCEDURES Final Result from Last 3 Months or Most Recently Relevant to Health Maintenance Insurance [place] [facility] Member Subscriber Plan / Payer (Ef fective 2024-Present) Name:Wong Maravilla Relation to Subscriber:Self Name:Wong Maravilla Payer ID:[id number] Group ID:Not on file Type:Not on file Address: [address] [place] [address] Advance Directives Documents on File Type Date Recorded Patient Actuarial Assistant Expl anation Health Care Decision (hx) 01/09/2015 [...] (hx) 10/06/2013 AD CHACON DIRECTIVE Care Teams Marketing Outreach Coordinator Relationship Specialty Start Date End Date Del Aparicio MD [address] [address] PCP - General Internal Medicine 08/06/18
== END 2025-03-22 12:25 | disposition home or self-care (01) ==
LOC: HO.HKAS 11:28
PROVIDERS: PCP Internal Medicine; Visit Provider Internal Medicine Nephrology
DX: I10 Essential (primary) hypertension (principal)
CPT/HCPCS: 99214

== ENCOUNTER → 2025-03-22 11:27 | Outpatient (BNVA) | payer OTHER, SELFPAY | PROVIDERS: PCP Internal Medicine; Visit Provider Internal Medicine Nephrology | DX: I10 Essential (primary) hypertension (principal); Z71.3 Dietary counseling and surveillance | CPT/HCPCS: 99212 ==

== ENCOUNTER 2025-06-17 13:17 | Outpatient (REF) | payer OTHER, SELFPAY ==
--- OUTSIDE RECORDS SUMMARY | 2025-06-17 13:20 | XMS_ITS | Clinical Summary ---
Author Organization [address] [facility] Address [address] [place] [address] Phone Care Team Providers Care Hydraulic Miner Name Role Phone Del Aparicio MD Primary Care Provider [phone] Allergies No known active allergies Medications calcium carbonate-vitamin D3 (Calcium 600 + D,3,) 600 mg-5 mcg (200 unit) per tablet TAKE 1 TABLET BY MOUTH DAILY 04/09/20 24 Active medical supply, miscellaneous (MISCELLANEOUS MEDICAL SUPPLY MISC) INCONTINENCE SUPPLY DISPOSABLE (DISPOSABLE LINERS) MISC 1 Each by Does not apply route 3 times daily. 08/04/20 23 Active OMEGA-3 FATTY ACIDS-FISH OIL ORAL Take by mouth daily. Active aspirin 81 mg EC tablet Take 1 tablet (81 mg total) by mouth 1 (one) time each day. 08/04/20 19 Active amLODIPine (NORVASC) 5 mg tablet TAKE 1 TABLET BY MOUTH DAILY 90 tablet 1 08/03/20 24 Active hydrALAZINE (APRESOLINE) 25 mg tablet [...] (seven) days. 4 mL 08/13/20 24 Active Additional Information Patient not taking.Reported on 05/27/2025 benzonatate (TESSALON) 200 mg capsule Take 1 capsule (200 mg total) by mouth 3 (three) times a day if needed for cough. Do not crush or chew. 21 capsule 09/17/20 24 Active Additional Information Patient not taking.Reported on 05/27/2025 levothyroxine (SYNTHROID, LEVOTHROID) 112 mcg tablet TAKE 1 TABLET BY MOUTH DAILY 90 tablet 1 11/02/19 25 Active methylPREDNISolon e (MEDROL DOSPAK) 4 mg tablet Follow schedule on package instructions 1 each 11/30/19 25 Active Additional Information Patient not taking.Reported on 02/04/2025 lisinopril (PRINIVIL,ZESTRIL ) 40 mg tablet TAKE 1 TABLET BY MOUTH DAILY 90 tablet 1 02/03/20 25 Active spironolactone (ALDACTONE) 25 mg tablet Take 1 tablet (25 mg total) by mouth 1 (one) time each day. Active fluticasone propionate (FLONASE) 50 mcg/actuation nasal spray Administer 2 sprays into each nostril 1 (one) time each day. 16 g 3 02/10/20 25 Active loratadine (CLARITIN) 10 mg tablet Take 1 tablet (10 mg total) by mouth 1 (one) time each day. 90 each 3 02/10/20 25 026 Active Additional Information Patient not taking.Reported on 05/27/2025 pravastatin (PRAVACHOL) 20 mg tablet Take 1 tablet (20 mg total) by mouth 1 (one) time each day. 90 tablet 1 04/07/20 25 Active labetaloL (NORMODYNE) 200 mg tablet Take 1 tablet (200 mg total) by mouth 2 (two) times a day. 60 tablet 1 05/11/20 25 Active Active Problems Problem Noted Date Diagnosed Date Class 3 severe obesity witho ut serious comorbidity with body mass index (BMI) of 50.0 to 59.9 in adult ([facility] V24, [facility] V28) 08/04/2024 Primary osteoarthritis of left knee 06/24/2023 Primary osteoarthritis of right knee 06/24/2023 Aortic dilatation ([facility] V24) 06/13/2021 Overview (07/23/2024): Last Assessment & Plan: Patient's last echocardiogram showing an ascending aortic measurement 3.8 cm. Continue to monitor. Palpitations 06/13/2021 Overview (07/23/2024): Last Assessment & Plan: Patient denies any recurrent palpitations. She is on labetalol 200 mg twice daily. Obstructive sleep apnea 05/15/2020 Overview (07/23/2024): [facility] Home Sleep Apnea Test: Date 05/09/2020; BMI 45; RDI 77, AHI 77; average oxygen saturation 93% (lowest 73% without saturations <88% for 5% or more of study) - Obstructive Sleep Apnea - severe; without sleep related hypoventilation by 2019 home sleep apnea test. Morbid obesity with body mas s index (BMI) of 40.0 to 49.9 ([facility] V24, [facility] V28) 08/25/2018 Vitamin D deficiency 08/25/2018 Viral [...] Encounters Date Type Department Care Team Description 05/27/2025 12:00 PM EDT Office Visit Internal Medicine - [address] [place] [address] Del Aparicio MD Primary hypertension (Primary Dx); Hypercholesterolemia; Hypothyroidism, unspecified type; Aortic dilatation ([facility] V24) from Last 3 Months Immunizations Name Administration [...] mass index (BMI) of 40.0 to 49.9 ([facility]) Stress incontinence in female 03/22/2015 DX :Stress [...] Sign Reading Time Taken Comments Blood Pressure 138/75 05/27/2025 12:31 PM EDT Pulse 66 05/27/2025 12:15 PM EDT Temperature 36.1 C (96.9 F) 05/27/2025 12:15 PM EDT Respiratory Rate - - Oxygen Saturation 96% 05/27/2025 12:15 PM EDT Inhaled Oxygen Concentration - - Weight 123 kg (270 lb 9.6 oz) 05/27/2025 12:15 P M EDT Height 154.9 cm (5' 1 ) 05/27/2025 12:15 PM EDT Body Mass Index 51.13 05/27/2025 12:15 PM EDT Plan of Treatment Upcoming Encounters Date Type Department Care Team (Late st Contact Info) Description 06/22/2025 1:30 PM EDT Ancillary Procedure [facility] - [facility] [address] [place] [address] 08/09/2025 11:30 AM EST Office Visit Vascular Surgery - [place] [address] [place] [address] Jacquie Rahman PA [address] [facility] [address] [place] [address] 11/22/2025 1:00 PM EST Office Visit Internal Medicine - [place] [address] [facility] [address] [place] [address] Del Aparicio MD 175 [facility] [address] [place] [address] Health Maintenance Due Date Last Done Comments Zoster Vaccines (1 of 2) 02/17/2004 RSV Immunization Adult Patients (1 - Risk 60-74 years 1-dose series) 2014 Hepatitis C Screening 09/07/2022 Social Influencers of Health Screening 09/07/2022 Breast Cancer Screening 11/25/2022 11/25/19 21, 04/06/2019, 04/03/2018 DTaP,Tdap,and Td Vaccines (2 - Td or Tdap) 09/29/2023 09/29/2013 Depression Screening 09/29/2024 11/17/2023 Falls Risk Assessment 11/17/2024 11/17/2023 Hypertension/CHF/CAD Annual BMP Blood Test 05/24/2025 05/24/2024, 05/24/2024 COVID-19 Vaccine ( season) 2025 07/15/2022, 08/22/2021, 01/17/2021, Additional history exists Influenza Vaccine (#1) 2025 07/28/2022, 2020 Pneumococcal Vaccine: 50+ Years (3 of 3 [...] Procedure Name Priority Date/Time Associated Diagnosis Comments ANNUAL BMP BLOOD TEST Routine 05/24/2024 LIPID PANEL Routine 05/24/2024 DEPRESSION SCREENING Routine 11/17/2023 FALLS RISK ASSESSMENT Routine 11/17/2023 COLONOSCOPY Routine 07/18/2021 [facility] SCREENING DIGITAL Routine 11/25/2020 1:09 PM EST Encounter for screening mammogram for malignant neoplasm of breast [facility] DEXA AXIAL SKELETON Routine 04/03/2018 2:03 PM EDT Encounter for screening for osteoporosis from Last 3 Months or Most Recently Relevant to Health Maintenance Results * Annual BMP Blood Test (05/24/2024) [facility] Annual BMP Blood Test abstracted [facility] Provider HEALTH MAINTENANCE Final Result * (ABNORMAL) Lipid panel (05/24/2024) [facility] LDL/HDL Ratio 4 0 - 4 Triglycerides 114 0 - 150 mg/dL Cholesterol 192 0 - 200 mg/dL HDL 53 >=40 mg/dL LDL Cholesterol 117(A) 0 - 100 mg/dL Blood Venous blood specimen / Unknown [facility] Provider LAB BLOOD ORDERABLES Tomasa l Result * Falls Risk Assessment (11/17/2023) [facility] Falls Risk Assessment abstracted [facility] Provider HEALTH MAINTENANCE Final Result * Depression Screening (11/17/2023) [facility] Depression Screening abstracted [facility] Provider HEALTH MAINTENANCE Final Result * Colonoscopy (07/18/2021) [facility] Colonoscopy no interpretation , abstracted Anatomical Region Laterality Modality Other [facility] Provider HEALTH MAINTENANCE Final Result * [facility] SCREENING DIGITAL (11/25/2020 1:09 PM EST) Anatomical Region Laterality Modality Mammography 11/23/2020 8:48 AM EST Narrative 11/25/2020 1:09 PM EST [facility] Diagnostic Imaging Department [address] [place] [address] Patient: TONYA MARAVILLA /Age/Sex: 1955 - 65 - F Unit#: [id number] Location/Status: [facility] CLI Mnemonic/Ordering Site[facility] Ordering Physician: DEL APARICIO MD [facility] Screening Digital - 11/25/20 - 831 EXAM: [facility] Screening Digital EXAM DATE AND TIME: 11/25/2020 8:33 AM HISTORY: Annual screening mammography. COMPARISON: 04/06/2019 through 04/03/2018 TECHNIQUE: CC and MLO views of both breasts were obtained using full field digital mammography. Bilateral digital breast tomosynthesis was performed in the MLO projection. Computer aided detection with the [employer] was employed. TISSUE DENSITY: a. The breasts [...] Routine screening mammogram BILATERAL in 1 year. [id number], 46835 3341F, 7025F Dictating Physician: YAEL HICKS MD Electronically Signed by: YAEL HICKS MD Dic Date/Time: 11/25/20 1307 Sign date/Time: 11/25/20 1309 Procedure Note Jovanna Hicks MD - 09/17/2022 [facility] Diagnostic Imaging Department [address] [place], [place] [id number] Patient: TONYA MARAVILLA /Age/Sex: 1955 - 65 - F Unit#: [id number] Location/Status: SPDIMAM/REG CLI Mnemonic/Ordering Site: [facility] Ordering Physician: DEL APARICIO MD [facility] Screening Digital - 11/25/20 - 32 EXAM: [facility] Screening Digital EXAM DATE AND TIME: 11/25/2020 8:33 AM HISTORY: Annual screening mammography. COMPARISON: 04/06/2019 through 04/03/2018 TECHNIQUE: CC and MLO views of both breasts were obtained using fullfield digital mammography. Bilateral digital breast tomosynthesis was performedin the MLO projection. Computer aided detection with the [employer] 7.2-[employer] employed. TISSUE DENSITY: a. The breasts are [...] Routine screening mammogram BILATERAL in 1 year. 94272, 63590 3341F, 7010F Dictating Physician: YAEL HICKS MD Electronically Signed by: YAEL HICKS MD Dic Date/Time: 11/25/20 1307 Sign date/Time: 11/25/20 1309 Del Aparicio MD IMG BI PROCEDURES Final Result * [facility] DEXA AXIAL SKELETON (04/03/2018 2:03 PM EDT) Anatomical Region Laterality Modality Mammography 04/03/2018 12:2 9 PM EDT Narrative 04/03/2018 2:03 PM EDT [facility] Diagnostic Imaging Department [address] [place] [address] Patient: TONYA MARAVILLA Edward /Age/Sex: 1955 - 63 - F Unit#: [id number] Location/Status: [facility] CLI Mnemonic[facility] Ordering Physician: FREDDIE LONDON MD [facility] Dexa Axial Skeleton - 04/03/18 - 1330 HISTORY: The patient is a 63-year-old postmenopausal [...] probability of hip fracture of 0.1%. Code 87388 Dictating Physician: RODRIGO [place] MD Electronically Signed by: RODRIGO [place] MD Dic Date/Time: 04/03/18 140 Sign date/Time: 04/03/18 140 Procedure Note Rodrigo [place] MD - 09/17/2022 [facility] Diagnostic Imaging Department [address] [place] [address] Patient: TONYA MARAVILLA D.O.B./Age/Sex: 1955 - 63 - F Unit#: [id number] Location/Status: [facility] Mnemonic[facility] Ordering Physician: FREDDIE LONDON MD [facility] Dexa Axial Skeleton - [...] density of the femurs bilaterally is 1.158 gm/oi3mkfsz is 115% of that of young normals [...] probability of hip fracture of 0.1%. Code 36137 Dictating Physician: RODRIGO [place] MD Electronically Signed by: RODRIGO [place] MD Dic Date/Time: 04/03/18 1402 Sign date/Time: 04/03/18 1403 Freddie London MD IMG BI PROCEDURES Final Result from Last 3 Months or Most Recently Relevant to Health Maintenance Insurance [facility] Member Subscriber Plan / Payer (Ef fective 2024-Present) Name:TONYA MARAVILLA Relation to Subscriber:Self Name:Tonya Maravilla Payer ID:[id number] Group ID:Not on file Type:Not on file Address: [facility] [address] [address] Advance Directives Documents on File Type Date Recorded [facility] Decision (hx) 01/09/2015 AD CHACON [...] (hx) 10/06/2013 AD CHACON DIRECTIVE Care Teams Hydraulic Miner Relationship Specialty Start Date End Date Del Aparicio MD [address] [place] [id number] PCP - General Internal Medicine 08/06/18
[2025-06-17 18:13] LABS: Anion Gap 10 (12-20); Blood Urea Nitrogen 15 mg/dL (9-16); Carbon Dioxide 29 mmol/L (22-29); Chloride 108 mmol/L (96-108); Estimated Glomerular Filt Rate 56; Potassium 4.1 mmol/L (3.3-5.1); Sodium 143 mmol/L (135-145)
== END 2025-06-17 13:18 | disposition home or self-care (01) ==
LOC: HO.HKASLDS 13:17
PROVIDERS: Visit Provider Internal Medicine Nephrology
DX: I10 Essential (primary) hypertension (principal)
CPT/HCPCS: 36415; 80051; 82565; 84520

== ENCOUNTER 2025-06-21 11:51 | Outpatient (AMB) | payer OTHER, SELFPAY ==
--- NOTE | 2025-06-21 11:54 | HO.NEPHOV ---
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 She has hypertension for a long time and has been on multiple medications. Number medications and its doses has been steadily going up. She is not strict with a low-sodium diet and has struggled all along to lose weight. She has obstructive sleep apnea and does not wear any CPAP. She has taken amlodipine in the past which has caused her ankle swelling and had been discontinued. She has history of aortic root dilatation by echocardiogram. She denies any coronary artery disease, congestive heart failure, CVA, peripheral arterial disease or excessive nonsteroidal anti-inflammatory medication use. She has no history of hypokalemia, uncontrolled thyroid disorders, hypercalcemia, renal dysfunction. She claims to be compliant with medications. She has strong family history of hypertension. [facility] Medical History Hyperlipidemia Aortic dilatation Vitamin D deficiency Viral upper respiratory tract infection Stress incontinence in female Primary osteoarthritis of right knee Primary osteoarthritis of left knee Palpitations Obstructive sleep apnea Morbid obesity with body mass index (BMI) of 40.0 to 49.9 Lichen planus Hypothyroidism Hypertension Surgical History H/O colonoscopy History of cholecystectomy Family History Mother Heart disease Hypertension Social History Alcohol intake: never Patient Tobacco Use Status: Never used Tobacco Review of Systems Const All systems reviewed & are unremarkable except as noted in HPI and below Physical Exam Const General: comfortable and no acute distress Orientation/consciousness: patient oriented x3 HEENT Head: Yes normocephalic Mouth: Normal oral and palatal mucosa present Eyes EOM: EOMs intact bilaterally Neck Neck: Yes supple Resp Auscultation: clear to auscultation bilaterally Cardio Jugular venous distension: no JVD Rate: regular rate GI Palpation (GI): Soft to palpation Auscultation: normal bowel sounds General: Yes no CVA tenderness Back/Spine/Pelvis Back: no CVA tenderness Skin General skin exam: no rashes or lesions noted Neuro General: patient oriented x3 and moves all extremities Extrem General: Yes no pedal edema Results Reviewed Nephrology Results: Sodium, (135-145) 143 mmol/L 06/17/25 Potassium, (3.3-5.1) 4.1 mmol/L 06/17/25 Chloride, (96-108) 108 mmol/L 06/17/25 Carbon Dioxide, (22-29) 29 mmol/L 06/17/25 BUN, (9-16) 15 mg/dL 06/17/25 Creatinine, (0.5-1.4) 0.98 mg/dL 06/17/25 Calcium, (8.4-10.2) 9.7 mg/dL 12/07/24 Urine Creatinine 118.55 mg/dL 12/07/24 Protein/Creatinin Ratio, (<0.2) 0.15 12/07/24 Assessment & Plan Assessment & Plan (1) Hypertension: Code(s): I10 - Essential (primary) hypertension Category: Medical Qualifiers: Hypertension type: primary hypertension Qualified Code(s): I10 - Essential (primary) hypertension (2) Aortic dilatation: Code(s): I77.819 - Aortic ectasia, unspecified site Category: Medical (3) Obstructive sleep apnea: Code(s): G47.33 - Obstructive sleep apnea (adult) (pediatric) Category: Medical Plan Tonya clearly will benefit from weight loss and lifestyle modification including low-sodium diet. She needs to be compliant with her CPAP.( sh ehas not been using it for a long time). I ordered sleep study. She could continue her current dosage of labetalol and lisinopril and hydralazine 50 mg twice daily. She may be having some mineralocorticoid excess and she should continue spironolactone 25 mg which was started at the last visit ( common side effects explained). Her blood pressure needs to be maintain a goal given her aortic root dilatation. She has history of edema from calcium channel michael. I will consider doing a Doppler of her renal arteries and initiating her on chlorthalidone and combining with the lisinopril based on evolving data. She has no history of retinopathy, renal dysfunction, proteinuria, diabetes mellitus, coronary artery disease. All these have been explained in detail. Answered all questions. Orders: Orders Blood Urea Nitrogen 3 Months G47.33 - Obstructive sleep apnea (adult) (pediatric), I10 - Essential (primary) hypertension, I77.819 - Aortic ectasia, unspecified site RT PSG in-lab sleep study Today G47.33 - Obstructive sleep apnea (adult) (pediatric) Electrolytes 3 Months G47.33 - Obstructive sleep apnea (adult) (pediatric), I10 - Essential (primary) hypertension, I77.819 - Aortic ectasia, unspecified site Creatinine 3 Months G47.33 - Obstructive sleep apnea (adult) (pediatric), I10 - Essential (primary) hypertension, I77.819 - Aortic ectasia, unspecified site Medications: Changed From labetalol PO BID To labetalol 200 mg PO BID 180 tabs 3RF 90 days From lisinopril PO DAILY To lisinopril 40 mg PO DAILY 90 tabs 3RF 90 days Refilled hydralazine 50 mg PO BID 180 tabs 3RF 90 days spironolactone 25 mg PO DAILY 90 tabs 3RF Coding Level of Care Code Est Pt Level 4 (84434) Diagnoses Primary hypertension I10 Hypertension type: primary hypertension Aortic dilatation I77.819 Obstructive sleep apnea G47.33
[2025-06-21 11:57] VITALS: BP 140/90; PULSE 62; O2SAT 95; BMI 51.8
--- OUTSIDE RECORDS SUMMARY | 2025-06-21 14:44 | XMS_ITS | Clinical Summary ---
Author Organization 175 [facility] Address [address] [place] [address] Phone Care Team Providers Care Burner Technician Name Role Phone Del Aparicio MD Primary Care Provider [phone] Allergies No known active allergies Medications calcium [...] (BMI) of 50.0 to 59.9 in adult ([facility] V24, [facility] V28) 08/04/2024 Primary osteoarthritis of left knee 06/24/2023 Primary osteoarthritis of right knee 06/24/2023 Aortic dilatation ([facility] V24) 06/13/2021 Overview (07/23/2024): Last Assessment & Plan: Patient's last echocardiogram showing an ascending aortic measurement 3.8 cm. Continue to monitor. Palpitations 06/13/2021 Overview (07/23/2024): Last Assessment & Plan: Patient denies any recurrent palpitations. She is on labetalol 200 mg twice daily. Obstructive sleep apnea 05/15/2020 Overview (07/23/2024): [facility] Home Sleep Apnea Test: Date 05/09/2020; BMI 45; RDI 77, AHI 77; average oxygen saturation 93% (lowest 73% without saturations <88% for 5% or more of study) - Obstructive Sleep Apnea - severe; without sleep related hypoventilation by 2019 home sleep apnea test. Morbid obesity with body mas s index (BMI) of 40.0 to 49.9 ([facility] V24, [facility] V28) 08/25/2018 Vitamin D deficiency 08/25/2018 Viral [...] PM EDT Office Visit Internal Medicine - [address] [place] [address] Del Aparicio MD Primary hypertension (Primary Dx); Hypercholesterolemia; Hypothyroidism, unspecified type; Aortic dilatation ([facility] V24) from Last 3 Months Immunizations Name [...] (BMI) of 40.0 to 49.9 ([facility]) Stress incontinence in female 03/22/2015 DX :Stress [...] Description 06/22/2025 1:30 PM EDT Ancillary Procedure [facility] - [facility] [address] [place] [address] 08/09/2025 11:30 AM EST Office Visit Vascular Surgery - [place] [address] [place] [address] Jacquie Rahman PA 300 [facility] [address] [place] [address] 11/22/2025 1:00 PM EST Office Visit Internal Medicine - [place] 175 [facility] 200 [place] [address] Del Aparicio MD 175 [facility] 200 [place] [address] Health Maintenance Due Date Last Done Comments [...] Results * Annual BMP Blood Test (05/24/2024) [facility] Annual BMP Blood Test abstracted [facility] Provider HEALTH MAINTENANCE Final Result * (ABNORMAL) Lipid panel (05/24/2024) [facility] LDL/HDL Ratio 4 0 - 4 Triglycerides 114 0 - 150 mg/dL Cholesterol 192 0 - 200 mg/dL HDL 53 >=40 mg/dL LDL Cholesterol 117(A) 0 - 100 mg/dL Blood Venous blood specimen / Unknown [facility] Provider LAB BLOOD ORDERABLES Tomasa l Result * Falls Risk Assessment (11/17/2023) [facility] Falls Risk Assessment abstracted [facility] Provider HEALTH MAINTENANCE Final Result * Depression Screening (11/17/2023) [facility] Depression Screening abstracted [facility] Provider HEALTH MAINTENANCE Final Result * Colonoscopy (07/18/2021) [facility] Colonoscopy no interpretation , abstracted Anatomical Region Laterality Modality Other [facility] Provider HEALTH MAINTENANCE Final Result * [facility] SCREENING DIGITAL (11/25/2020 1:09 PM EST) Anatomical Region Laterality Modality Mammography 11/23/2020 8:48 AM EST Narrative 11/25/2020 1:09 PM EST [facility] Diagnostic Imaging Department [address] [place] [address] Patient: TONYA MARAVILLA /Age/Sex: 1955 - 65 - F Unit#: [id number] Location/Status: [facility] CLI Mnemonic/Ordering Site: [facility] Ordering Physician: DEL APARICIO MD [facility] Screening Digital - 11/25/20 - 831 EXAM: [facility] Screening Digital EXAM DATE AND TIME: 11/25/2020 8:33 AM HISTORY: Annual screening mammography. COMPARISON: 04/06/2019 through 04/03/2018 TECHNIQUE: CC and MLO views of both breasts were obtained using full field digital mammography. Bilateral digital breast tomosynthesis was performed in the MLO projection. Computer aided detection with the [employer] 7.2-Apps4Pro was employed. TISSUE DENSITY: a. The breasts [...] Routine screening mammogram BILATERAL in 1 year. 83850, 71225 3341F, 7025F Dictating Physician: YAEL HICKS MD Electronically Signed by: YAEL HICKS MD Dic Date/Time: 11/25/20 1307 Sign date/Time: 11/25/20 1309 Procedure Note Jovanna Hicks MD - 09/17/2022 [facility] Diagnostic Imaging Department [address] [place], [place] [id number] Patient: TONYA MARAVILLA /Age/Sex: 1955 - 65 - F Unit#: [id number] Location/Status: [facility]/REG CLI Mnemonic/Ordering Site: [facility] Ordering Physician: DEL APARICIO MD [facility] Screening Digital - 11/25/20 - 32 EXAM: [facility] Screening Digital EXAM DATE AND TIME: 11/25/2020 8:33 AM HISTORY: Annual screening mammography. COMPARISON: 04/06/2019 through 04/03/2018 TECHNIQUE: CC and MLO views of both breasts were obtained using fullfield digital mammography. Bilateral digital breast tomosynthesis was performedin the MLO projection. Computer aided detection with the Socioc[employer] 7.2-ConnectQuestas employed. TISSUE DENSITY: a. The breasts are [...] Routine screening mammogram BILATERAL in 1 year. 64091, 50997 3341F, 7080F Dictating Physician: YAEL HICKS MD Electronically Signed by: YAEL HICKS MD Dic Date/Time: 11/25/20 1307 Sign date/Time: 11/25/20 1309 Del Aparicio MD IMG BI PROCEDURES Final Result * [facility] DEXA AXIAL SKELETON (04/03/2018 2:03 PM EDT) Anatomical Region Laterality Modality Mammography 04/03/2018 12:2 9 PM EDT Narrative 04/03/2018 2:03 PM EDT [facility] Diagnostic Imaging Department [address] [place] [address] Patient: TONYA MARAVILLA Edward /Age/Sex: 1955 - 63 - F Unit#: [id number] Location/Status: [facility] CLI Mnemonic/Ordering [facility] Ordering Physician: FREDDIE LONDON MD [facility] Dexa Axial Skeleton - 04/03/18 - [...] probability of hip fracture of 0.1%. Code 54429 Dictating Physician: RODRIGO TUCKER MD Electronically Signed by: RODRIGO TUCKER MD Dic Date/Time: 04/03/18 140 Sign date/Time: 04/03/18 140 Procedure Note Rodrigo Tucker MD - 09/17/2022 [facility] Diagnostic Imaging Department [address] [place] [address] Patient: TONYA MARAVILLA D.O.B./Age/Sex: 1955 - 63 - F Unit#: [id number] Location/Status: [facility] Mnemonic/Ordering Site[facility] Ordering Physician: FREDDIE LONDON MD [facility] Dexa [...] density of the femurs bilaterally is 1.158 gm/sz3hbmeg is 115% of that of young normals [...] probability of hip fracture of 0.1%. 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
== END 2025-06-21 12:16 | disposition home or self-care (01) ==
LOC: HO.HKAS 11:51
PROVIDERS: PCP Internal Medicine; Visit Provider Internal Medicine Nephrology
DX: I10 Essential (primary) hypertension (principal); I77.819 Aortic ectasia, unspecified site; G47.33 Obstructive sleep apnea (adult) (pediatric)
CPT/HCPCS: 99214

== ENCOUNTER → 2025-06-21 11:51 | Outpatient (BNVA) | payer OTHER, SELFPAY | PROVIDERS: PCP Internal Medicine; Visit Provider Internal Medicine Nephrology | DX: I10 Essential (primary) hypertension (principal); I77.819 Aortic ectasia, unspecified site; G47.33 Obstructive sleep apnea (adult) (pediatric) | CPT/HCPCS: 99212 ==

== ENCOUNTER 2025-09-19 11:52 | Outpatient (REF) | payer OTHER, SELFPAY ==
[2025-09-19 14:40] LABS: Anion Gap 13 (12-20); Blood Urea Nitrogen 14 mg/dL (9-16); Carbon Dioxide 26 mmol/L (22-29); Chloride 109 mmol/L (96-108); Estimated Glomerular Filt Rate 59; Potassium 4.5 mmol/L (3.3-5.1); Sodium 143 mmol/L (135-145)
--- OUTSIDE RECORDS SUMMARY | 2025-09-19 15:11 | XMS_ITS | Clinical Summary ---
Author Organization 175 [facility] Address [address] [place] [address] Phone Care Team Providers Care Library Paraprofessional Name Role Phone Del Aparicio MD Primary Care Provider Allergies No known active allergies Medications medical supply, miscellaneous (MISCELLANEOUS MEDICAL SUPPLY MISC) INCONTINENCE SUPPLY DISPOSABLE (DISPOSABLE LINERS) MISC 1 Each by Does not apply route 3 times daily. 08/04/20 23 Active OMEGA-3 FATTY ACIDS-FISH OIL ORAL Take by mouth daily. Active aspirin 81 mg EC tablet Take 1 tablet (81 mg total) by mouth 1 (one) time each day. 08/04/20 19 Active lisinopril (PRINIVIL,ZESTRIL ) 40 mg tablet TAKE 1 TABLET BY MOUTH DAILY 90 tablet 1 02/03/20 25 Active spironolactone (ALDACTONE) 25 mg tablet Take 1 tablet (25 mg total) by mouth 1 (one) time each day. Active fluticasone propionate (FLONASE) 50 mcg/actuation nasal spray Administer 2 sprays into each nostril 1 (one) time each day. 16 g 3 02/10/20 25 Active pravastatin (PRAVACHOL) 20 mg tablet Take 1 tablet (20 mg total) by mouth 1 (one) time each day. 90 tablet 1 04/07/20 25 Active labetaloL (NORMODYNE) 200 mg tablet Take 1 tablet (200 mg total) by mouth 2 (two) times a day. 60 tablet 1 07/08/20 25 Active levothyroxine (SYNTHROID, LEVOTHROID) 112 mcg tablet Take 1 tablet (112 mcg total) by mouth 1 (one) time each day. 90 tablet 1 08/09/20 Active hydrALAZINE (APRESOLINE) 50 mg tabletIndications :Primary hypertension Take 1 tablet (50 mg total) by mouth 2 (two) times a day. 180 each 3 08/10/20 25 026 Active Active Problems Problem Noted Date Diagnosed Date Leg edema 08/10/2025 Assessment & Plan (08/10/2025 4:03 PM EST): Patient with mild leg edema left greater than right. I think this is just basically isolated swelling. Even though she did have any evidence of venous insufficiency on her duplex scan I think this most likely is due to localized venous insufficiency. There is no other evidence of heart failure. Patient's been encouraged to keep her legs elevated and if necessary purchase elastic socks but I do not want to start diuretic therapy on this patient Class 3 severe obesity witho ut serious [...] daily. Obstructive sleep apnea 05/15/2020 Overview (07/23/2024): [facility] Home Sleep Apnea Test: Date 05/09/2020; BMI [...] her to continue to wear compression stockings. Assessment & Plan (08/10/2025 4:03 PM EST): Blood pressure still elevated will increase hydralazine to 50 mg twice daily. Stopping the amlodipine did not stop the ankle edema. And she has had venous ultrasounds done that have shown no evidence for venous insufficiency. I still think that this is secondary to venous insufficiency she has no other evidence of volume overload and I do not want to diurese this patient and prompted prerenal status on her. For the time being we will continue with hypertension management. Follow-up in a few months and see if we need to adjust medical therapy further. Orders: ECG 12 lead hydrALAZINE (APRESOLINE) 50 mg tablet; Take 1 tablet (50 mg total) by mouth 2 (two) times a day. Hyperlipidemia 05/14/2018 Overview (07/23/2024): Last Assessment & [...] Encounters Date Type Department Care Team Description 08/10/2025 2:00 PM EST Office Visit [facility] [address] [place] [address] Sarath Massey MD Primary hypertension (Primary Dx); Leg edema 08/04/2025 Telephone Vascular Surgery - [place] [address] [place] [address] Jacquie Rahman PA 07/08/2025 Results Follow-Up Vascular Surgery - [place] [address] [place] [address] Jacquie Rahman PA 06/22/2025 1:30 PM EDT Ancillary Procedure [facility] - [address] [place] [phone] Bilateral leg edema from Last 3 Months Immunizations Immunization Administration Dates Next Due Pneumococcal polysaccharide 23 [...] s index (BMI) of 40.0 to 49.9 ([facility]/HCC V24, CMS/HCC V28) 08/25/2018 DX:Morbid obesity with body mass index (BMI) of 40.0 to 49.9 ([facility]) Stress incontinence in female 03/22/2015 [...] on file Sexual Orientation Not on file Last Filed Vital Signs Vital Sign Reading Time Taken Comments Blood Pressure 138/75 05/27/2025 12:31 PM EDT Pulse 59 08/10/2025 2:01 PM EST Temperature 36.1 C (96.9 F) 05/27/2025 12:15 PM EDT Respiratory Rate - - Oxygen Saturation 98% 08/10/2025 2:01 PM EST Inhaled Oxygen Concentration - - Weight 120 kg (265 lb) 08/10/2025 2:01 PM EST Height 154.9 cm (5' 1 ) 08/10/2025 2:01 PM EST Body Mass Index 50.07 08/10/2025 2:01 PM EST Plan of Treatment Upcoming Encounters Date Type Department Care Team (Late st Contact Info) Description 11/22/2025 1:00 PM EST Office Visit Internal Medicine - [place] [address] [place] [phone] Del Aparicio MD [address] [place] [address] Health Maintenance Due Date Last Done Comments RSV Immunization Adult Patients (1 - Risk 50-74 years 1-dose series) 02/17/2004 Zoster Vaccines (1 of 2) 02/17/2004 Hepatitis C Screening 09/07/2022 Social Influencers of Health Screening 09/07/2022 Breast Cancer Screening 11/25/2022 11/25/19 21, 04/06/2019, 04/03/2018 DTaP,Tdap,and Td Vaccines (2 - Td or Tdap) 09/29/2023 09/29/2013 Depression Screening 09/29/2024 11/17/2023 Falls Risk Assessment 11/17/2024 11/17/2023 Medicare Annual Wellness Visit 11/17/2024 11/17/2023 Hypertension/CHF/CAD Annual BMP Blood Test 05/24/2025 05/24/2024, 05/24/2024 COVID-19 Vaccine (5 - season) 2025 07/15/2022, 08/22/2021, 01/17/2021, Additional history exists Pneumococcal Vaccine: 50+ Years (3 of 3 - PCV20 or PCV21) 05/15/2026 05/15/2021, 08/20/2016 Colorectal Cancer Screening: Colonoscopy 07/18/2026 07/18/2021 Osteoporosis Screening (Bone Density Screening) 04/03/2028 04/03/2018 Cholesterol Screening (Lipid Panel) 05/24/2029 05/24/2024, 05/24/2024 Influenza Vaccine Completed 07/23/2025, , 08/15/2021 HIB Vaccines Aged Out No longer eligi [...] Procedure Name Priority Date/Time Associated Diagnosis Comments ECG 12-LEAD Routine 08/10/2025 2:10 PM EST Primary hypertension VAS US DUPLEX LOWER EXT VENOUS INSUFFICIENCY BILATERAL Routine 06/22/2025 1:43 PM EDT Bilateral leg edema ANNUAL BMP BLOOD TEST Routine 05/24/2024 LIPID PANEL Routine 05/24/2024 DEPRESSION SCREENING Routine 11/17/2023 FALLS RISK ASSESSMENT Routine 11/17/2023 COLONOSCOPY Routine 07/18/2021 LIZZETH SCREENING DIGITAL Routine 11/25/2020 1:09 PM EST Encounter for screening mammogram for malignant neoplasm of breast [facility] DEXA AXIAL SKELETON Routine 04/03/2018 2:03 PM EDT Encounter for screening for osteoporosis from Last 3 Months or Most Recently Relevant to Health Maintenance Results * ECG 12 lead (08/10/2025 2:10 PM EST) Ventricular Rate ECG 57 BPM GEMUSE Atrial Rate 57 BPM GEMUSE P-R Interval 172 ms GEMUSE QRS Duration 144 ms GEMUSE Q-T Interval 484 ms GEMUSE QTc 471 ms GEMUSE P Wave [place] 43 degrees GEMUSE R [place] -45 degrees GEMUSE T [place] 26 degrees GEMUSE ECG Interpretation Sinus bradycardia Right bundle branch block Left anterior fascicular block Bifascicular block Abnormal ECG When compared with ECG of 04-AUG-2017 09:55, (RBBB and left anterior fascicular block) is now Present Confirmed by Khloe MASSEY, SARATH ([id number]) on 08/10/2025 3:58:27 PM GEMUSE 08/10/2025 2:10 PM EST 08/10/2025 3:58 PM EST us Sarath Massey MD ECG ORDERABLES Final Result GEMUSE * Vascular US duplex lower extremity venous insufficiency bilateral (06/22/2025 1:43 PM EDT) Left GSK hafsa 0.48 cm CV VAS LAB Left GSDC hafsa 0.18 cm CV VAS LAB Left GSMT hafsa 0.49 cm CV VAS LAB Left GSPC hafsa 0.35 cm CV VAS LAB Left GSPT hafsa 0.57 cm CV VAS LAB Left SFJ Diameter 0.73 cm CV VAS LAB Left SSMC hafsa 0.22 cm CV VAS LAB Left SSPC hafsa 0.21 cm CV VAS LAB Right GSK hafsa 0.39 cm CV VAS LAB Right GSDC hafsa 0.24 cm CV VAS LAB Right GSMT hafsa 0.43 cm CV VAS LAB Right GSPC hafsa 0.36 cm CV VAS LAB Right GSPT hafsa 0.46 cm CV VAS LAB Right SFJ Diameter 0.67 cm CV VAS LAB Right SSMC hafsa 0.23 cm CV VAS LAB Right SSPC hafsa 0.27 cm CV VAS LAB Anatomical Region Laterality Modality Vascular, Abdomen Ultrasound Narrative 07/08/2025 12:15 PM EDT 1. There is no evidence of a DVT in the right or left lower extremity. 2. There is no clinically significant reflux noted in the right or left lower extremity venous system Right Lower Venous No evidence of deep vein thrombosis in the common femoral, deep femoral, proximal femoral, mid femoral, distal femoral, popliteal, greater saphenous, small saphenous, posterior tibial and peroneal veins of the right leg. The vessels showed compressibility. Interrogation showed phasic and spontaneous Doppler signals. Right Venous Insufficiency Duplex The exam was performed with the patient in reverse Trendelenburg. Left Lower Venous No evidence of deep vein thrombosis in the common femoral, deep femoral, proximal femoral, mid femoral, distal femoral, popliteal, greater saphenous, small saphenous, posterior tibial and peroneal veins of the left leg. The vessels showed compressibility. Interrogation showed phasic and spontaneous Doppler signals. Left Venous Insufficiency Duplex The exam was performed with the patient in reverse trendelenburg. Wallpaperer Details A oconnor scale, color and doppler analysis ultrasound was performed. During the study longitudinal and transverse views were obtained. Pulsed wave doppler was performed. Jacquie ARORA CV VASCULAR PROCEDURES Final R esult * Annual BMP Blood Test (05/24/2024) [facility] Annual BMP Blood Test abstracted Result [facility] Historical Provider HEALTH MAINTENANCE Final Result * (ABNORMAL) Lipid panel (05/24/2024) [facility] LDL/HDL Ratio 4 0 - 4 Triglycerides 114 0 - 150 mg/dL Cholesterol 192 0 - 200 mg/dL HDL 53 >=40 mg/dL LDL Cholesterol 117(A) 0 - 100 mg/dL Blood Venous blood specimen / Unknown Result [facility] Historical Provider LAB BLOOD ORDERABLES Tomasa l Result * Falls Risk Assessment (11/17/2023) Falls Risk Assessment abstracted Historical Provider HEALTH MAINTENANCE Final Result * Depression Screening (11/17/2023) Depression Screening abstracted Historical Provider HEALTH MAINTENANCE Final Result * Colonoscopy (07/18/2021) Colonoscopy no interpretation , abstracted Anatomical Region Laterality Modality Other Historical Provider HEALTH MAINTENANCE Final Result * LIZZETH SCREENING DIGITAL (11/25/2020 1:09 PM EST) Anatomical Region Laterality Modality Mammography 11/23/2020 8:48 AM EST Narrative 11/25/2020 1:09 PM EST [facility] Diagnostic Imaging Department [address] [place] [address] Patient: WONG MARAVILLA D.O.B./Age/Sex: 1955 - 65 - F Unit#: [id number] Location/Status: [facility] CLI Mnemonic/Ordering Site: [facility] Ordering Physician: DEL APARICIO MD L[facility] Screening Digital - 11/25/20831 EXAM: [facility] Screening Digital EXAM DATE AND TIME: 11/25/2020 8:33 AM HISTORY: Annual screening mammography. COMPARISON: 04/06/2019 through 04/03/2018 TECHNIQUE: CC and MLO views of both breasts were obtained using full field digital mammography. Bilateral digital breast tomosynthesis was performed in the MLO projection. Computer aided detection with the [employer] 7.2-H was employed. TISSUE DENSITY: a. The [...] Routine screening mammogram BILATERAL in 1 year. 00224, 27410 3341F, 7094F Dictating Physician: YAEL HICKS MD Electronically Signed by: YAEL HICKS MD Dic Date/Time: 11/25/20 1307 Sign date/Time: 11/25/20 1309 Procedure Note Jovanna Hicks MD - 09/17/2022 [facility] Diagnostic Imaging Department [address] [place] [address] Patient: WONG MARAVILLA /Age/Sex: 1955 - 65 - F Unit#: [id number] Location/Status: [facility] CLI Mnemonic/Ordering Site: [facility] Ordering Physician: DEL APARICIO MD [facility] Screening Digital - 11/25/20831 EXAM: [facility] Screening Digital EXAM DATE AND TIME: 11/25/2020 8:33 AM HISTORY: Annual screening mammography. COMPARISON: 04/06/2019 through 04/03/2018 TECHNIQUE: CC and MLO views of both breasts were obtained using fullfield digital mammography. Bilateral digital breast tomosynthesis was performedin the MLO projection. Computer aided detection with the [employer] employed. TISSUE DENSITY: a. The breasts are [...] Routine screening mammogram BILATERAL in 1 year. 52881, 12056 3341F, 7025F Dictating Physician: YAEL HICKS MD Electronically Signed by: YAEL HICKS MD Dic Date/Time: 11/25/20 1307 Sign date/Time: 11/25/20 1309 Del Aparicio MD IMG BI PROCEDURES Final Result * [facility] DEXA AXIAL SKELETON (04/03/2018 2:03 PM EDT) Anatomical Region Laterality Modality Mammography 04/03/2018 12:2 9 PM EDT Narrative 04/03/2018 2:03 PM EDT [facility] Diagnostic Imaging Department [address] [place] [address] Patient: WONG MARAVILLA./Age/Sex: 1955 - 63 - F Unit#: [id number] Location/Status: [facility] CLI Mnemonic/Ordering Site: [facility] Ordering Physician: ZURI [...] probability of hip fracture of 0.1%. Code 13708 Dictating Physician: RODRIGO TUCKER MD Electronically Signed by: RODRIGO TUCKER MD Dic Date/Time: 04/03/18 140 Sign date/Time: 04/03/18 140 Procedure Note Rodrigo Tucker MD - 09/17/2022 [facility] Diagnostic Imaging Department [address] [place], [place] [id number] Patient: WONG MARAVILLA /Age/Sex: 1955 - 63 - F Unit#: [id number] Location/Status: [facility] CLI Mnemonic/Ordering Site: [facility] Ordering [...] density of the femurs bilaterally is 1.158 gm/wr0bytvj is 115% of that of young normals [...] probability of hip fracture of 0.1%. Code 22517 Dictating Physician: RODRIGO TUCKER MD Electronically Signed by: RODRIGO TUCKER MD Dic Date/Time: 04/03/18 1402 Sign date/Time: 04/03/18 1403 Zuri London MD IMG BI PROCEDURES Final Result from Last 3 Months or Most Recently Relevant to Health Maintenance Insurance [facility] MEDICARE Member Subscriber Plan / Payer (Ef fective 2020-Present) Name:Wong Maravilla Relation to Subscriber:Self Name:Wong Maravilla Payer ID:[id number] Group ID:Not on file Type:Not on file Address: [facility] [address] [address] Advance Directives Documents on File Type Date 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
== END 2025-09-19 11:53 | disposition home or self-care (01) ==
LOC: HO.HKASLDS 11:52
PROVIDERS: PCP Internal Medicine; Visit Provider Internal Medicine Nephrology
DX: I10 Essential (primary) hypertension (principal); I77.819 Aortic ectasia, unspecified site; G47.33 Obstructive sleep apnea (adult) (pediatric)
CPT/HCPCS: 36415; 80051; 82565; 84520

== ENCOUNTER 2025-09-20 11:04 | Outpatient (AMB) | payer OTHER, SELFPAY ==
--- NOTE | 2025-09-20 11:07 | HO.NEPHOV_ITS ---
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 She has hypertension for a long time and has been on multiple medications. Number medications and its doses has been steadily going up. She is not strict with a low-sodium diet and has struggled all along to lose weight. She has obstructive sleep apnea and does not wear any CPAP. She has taken amlodipine in the past which has caused her ankle swelling and had been discontinued. She has history of aortic root dilatation by echocardiogram. She denies any coronary artery disease, congestive heart failure, CVA, peripheral arterial disease or excessive nonsteroidal anti-inflammatory medication use. She has no history of hypokalemia, uncontrolled thyroid disorders, hypercalcemia, renal dysfunction. She claims to be compliant with medications. She has strong family history of hypertension. [facility] Medical History (Updated 06/21/25 @ 12:11 by Shaun Devine MD) Hyperlipidemia Aortic dilatation Vitamin D deficiency Viral upper respiratory tract infection Stress incontinence in female Primary osteoarthritis of right knee Primary osteoarthritis of left knee Palpitations Obstructive sleep apnea Morbid obesity with body mass index (BMI) of 40.0 to 49.9 Lichen planus Hypothyroidism Hypertension Surgical History H/O colonoscopy History of cholecystectomy Family History Mother Heart disease Hypertension Social History Alcohol intake: never Patient Tobacco Use Status: Never used Tobacco Review of Systems Const All systems reviewed & are unremarkable except as noted in HPI and below Physical Exam Const General: comfortable and no acute distress Orientation/consciousness: patient oriented x3 HEENT Head: Yes normocephalic Mouth: Normal oral and palatal mucosa present Eyes EOM: EOMs intact bilaterally Neck Neck: Yes supple Resp Auscultation: clear to auscultation bilaterally Cardio Jugular venous distension: no JVD Rate: regular rate GI Palpation (GI): Soft to palpation Auscultation: normal bowel sounds General: Yes no CVA tenderness Back/Spine/Pelvis Back: no CVA tenderness Skin General skin exam: no rashes or lesions noted Neuro General: patient oriented x3 and moves all extremities Extrem General: Yes no pedal edema Results Reviewed Nephrology Results: Sodium, (135-145) 143 mmol/L 09/19/25 Potassium, (3.3-5.1) 4.5 mmol/L 09/19/25 Chloride, (96-108) 109 mmol/L H 09/19/25 Carbon Dioxide, (22-29) 26 mmol/L 09/19/25 BUN, (9-16) 14 mg/dL 09/19/25 Creatinine, (0.5-1.4) 0.94 mg/dL 09/19/25 Protein/Creatinin Ratio, (<0.2) 0.15 12/07/24 Assessment & Plan Assessment & Plan (1) Hypertension: Code(s): I10 - Essential (primary) hypertension Category: Medical Qualifiers: Hypertension type: primary hypertension Qualified Code(s): I10 - Essential (primary) hypertension (2) Aortic dilatation: Code(s): I77.819 - Aortic ectasia, unspecified site Category: Medical Plan Tonya clearly will benefit from weight loss and lifestyle modification including low-sodium diet. She needs to be compliant with her CPAP.( she has not been using it for a long time). I ordered sleep study. She could continue her current dosage of labetalol and lisinopril and hydralazine 50 mg twice daily. She may be having some mineralocorticoid excess and she should continue spironolactone 25 mg which can be increased( I increased it to 37.5 mg) ( common side effects explained). Her blood pressure needs to be maintain a goal given her aortic root dilatation. She has history of edema from calcium channel michael. I will consider doing a Doppler of her renal arteries and initiating her on chlorthalidone and combining with the lisinopril based on evolving data. She has no history of retinopathy, renal dysfunction, proteinuria, diabetes mellitus, coronary artery disease. All these have been explained in detail. Answered all questions. Orders: Orders Electrolytes 2 Months I10 - Essential (primary) hypertension, I77.819 - Aortic ectasia, unspecified site Blood Urea Nitrogen 2 Months I10 - Essential (primary) hypertension, I77.819 - Aortic ectasia, unspecified site Creatinine 2 Months I10 - Essential (primary) hypertension, I77.819 - Aortic ectasia, unspecified site Coding Level of Care Code Est Pt Level 4 (41011) Diagnoses Primary hypertension I10 Hypertension type: primary hypertension Aortic dilatation I77.819
[2025-09-20 11:08] VITALS: BP 138/90; PULSE 63; O2SAT 97; BMI 51.8
--- OUTSIDE RECORDS SUMMARY | 2025-09-20 12:25 | XMS_ITS | Clinical Summary ---
Author Organization [address] [facility] Address [address] [place] [address] Phone Care Team Providers Care Criminal Profiler Name Role Phone Del Aparicio MD Primary Care Provider [phone] Allergies No known active allergies Medications medical [...] daily. Obstructive sleep apnea 05/15/2020 Overview (07/23/2024): [facility] Home Sleep Apnea Test: Date 05/09/2020; [...] Description 08/10/2025 2:00 PM EST Office Visit [facility] [address] [place] [address] Sarath Massey MD Primary hypertension (Primary Dx); Leg edema 08/04/2025 Telephone [facility] [place] [address] [place] [address] Jacquie Rahman PA 07/08/2025 Results Follow-Up [facility] [place] [address] [place] [address] Jacquie Rahman PA 06/22/2025 1:30 PM EDT Ancillary Procedure [facility] - [address] [place] [id number] Bilateral leg edema from Last 3 Months [...] index (BMI) of 40.0 to 49.9 ([facility]/HCC V24, CMS/HCC V28) 08/25/2018 DX:Morbid obesity with body mass index (BMI) of 40.0 to 49.9 ([facility]) Stress incontinence in female 03/22/2015 [...] PM EST Office Visit [facility] Medicine [facility] [place] [address] [place] [phone] Del Aparicio MD [address] [facility] [address] [place] [address] Health Maintenance Due Date Last Done Comments [...] screening mammogram for malignant neoplasm of breast [facility] DEXA AXIAL SKELETON Routine 04/03/2018 2:03 [...] GEMUSE QTc 471 ms GEMUSE P Wave Barre 43 degrees GEMUSE R Barre -45 degrees GEMUSE T Barre 26 degrees GEMUSE ECG Interpretation Sinus bradycardia [...] performed with the patient in reverse trendelenburg. Air Hammer Operator Details A oconnor scale, color and doppler analysis ultrasound was performed. During the study longitudinal and transverse views were obtained. Pulsed wave doppler was performed. Jacquie ARORA CV VASCULAR PROCEDURES Final R esult * Annual BMP Blood Test (05/24/2024) Health system Annual BMP Blood Test abstracted Result [facility] Historical Provider HEALTH MAINTENANCE Final Result * (ABNORMAL) Lipid panel (05/24/2024) [facility] LDL/HDL Ratio 4 0 - 4 Triglycerides 114 0 - 150 mg/dL Cholesterol 192 0 - 200 mg/dL HDL 53 >=40 mg/dL LDL Cholesterol 117(A) 0 - 100 mg/dL Blood Venous blood specimen / Unknown Result [facility] Historical Provider LAB BLOOD ORDERABLES Tomasa l [...] AM EST Narrative 11/25/2020 1:09 PM EST [facility] Diagnostic Imaging Department [address] [place] [address] Patient: WONG MARAVILLA D.O.B./Age/Sex: 1955 - 65 - F Unit#: [id number] Location/Status: [facility] CLI Mnemonic/Ordering Site: [facility] Ordering Physician: DEL APARICIO MD Lizzeth Screening Digital - 11/25/20831 EXAM: [facility] Screening Digital EXAM DATE AND TIME: 11/25/2020 8:33 AM HISTORY: Annual screening mammography. COMPARISON: 04/06/2019 through 04/03/2018 TECHNIQUE: CC and MLO views of both breasts were obtained using full field digital mammography. Bilateral digital breast tomosynthesis was performed in the MLO projection. Computer aided detection with the [employer]vue 7.2-H was employed. TISSUE DENSITY: a. The [...] Routine screening mammogram BILATERAL in 1 year. 32235, 60490 3341F, 7097F Dictating Physician: YAEL HICKS MD Electronically Signed by: YAEL HICKS MD Dic Date/Time: 11/25/20 1307 Sign date/Time: 11/25/20 1309 Procedure Note Jovanna Hicks MD - 09/17/2022 [facility] Diagnostic Imaging Department [address] [place] [address] Patient: WONG MARAVILLA /Age/Sex: 1955 - 65 - F Unit#: [id number] Location/Status: [facility] CLI Mnemonic/Ordering Site: [facility] Ordering Physician: DEL APARICIO MD [facility] Screening Digital - 11/25/20831 EXAM: [facility] Screening Digital EXAM DATE AND TIME: 11/25/2020 8:33 AM HISTORY: Annual screening mammography. COMPARISON: 04/06/2019 through 04/03/2018 TECHNIQUE: CC and MLO views of both breasts were obtained using fullfield digital mammography. Bilateral digital breast tomosynthesis was performedin the MLO projection. Computer aided detection with the Devshop.2-app2youas employed. TISSUE DENSITY: a. The breasts are [...] Routine screening mammogram BILATERAL in 1 year. 83167, 14392 3341F, 7025F Dictating Physician: YAEL HICKS MD Electronically Signed by: YAEL HICKS MD Dic Date/Time: 11/25/20 1307 Sign date/Time: 11/25/20 1309 Del Aparicio MD IMG BI PROCEDURES Final Result * [facility] DEXA AXIAL SKELETON (04/03/2018 2:03 PM EDT) Anatomical Region Laterality Modality Mammography 04/03/2018 12:2 9 PM EDT Narrative 04/03/2018 2:03 PM EDT [facility] Diagnostic Imaging Department [address] [place] [address] Patient: WONG MARAVILLA./Age/Sex: 1955 - 63 - F Unit#: [id number] Location/Status: [facility] CLI Mnemonic/Ordering Site: [facility] Ordering Physician: [...] probability of hip fracture of 0.1%. Code 08379 Dictating Physician: RODRIGO TUCKER MD Electronically Signed by: RODRIGO TUCKER MD Dic Date/Time: 04/03/18 140 Sign date/Time: 04/03/18 140 Procedure Note Rodrigo Tucker MD - 09/17/2022 [facility] Diagnostic Imaging Department [address] [place], [place] [id number] Patient: WONG MARAVILLA /Age/Sex: 1955 - 63 - F Unit#: [id number] Location/Status: [facility]/REG CLI Mnemonic/Ordering Site: MAMDEXAAX/SPMAM Ordering [...] density of the femurs bilaterally is 1.158 gm/yg0lgxuw is 115% of that of young normals [...] probability of hip fracture of 0.1%. Code 71205 Dictating Physician: RODRIGO TUCKER MD Electronically Signed by: RODRIGO TUCKER MD Dic Date/Time: 04/03/18 1402 Sign date/Time: 04/03/18 1403 Zuri London MD IMG BI PROCEDURES Final Result from Last 3 Months or Most Recently Relevant to Health Maintenance Insurance [facility] MEDICARE Member Subscriber Plan / Payer (Ef fective 2020-Present) Name:Wong Maravilla Relation to Subscriber:Self Name:Wong Marvailla Payer ID:[id number] Group ID:Not on file Type:Not on file Address: [facility] [address] [address] Advance Directives Documents on File Type Date Recorded Patient Wood Filler Expl anation Health Care Decision (hx) 01/09/2015 [...] (hx) 10/06/2013 AD CHACON DIRECTIVE Care Teams Criminal Profiler Relationship Specialty Start Date End Date Del Aparicio MD [address] [place] [id number] PCP - General Internal Medicine 08/06/18
== END 2025-09-20 11:32 | disposition home or self-care (01) ==
LOC: HO.HKAS 11:05
PROVIDERS: PCP Internal Medicine; Visit Provider Internal Medicine Nephrology
DX: I10 Essential (primary) hypertension (principal); I77.819 Aortic ectasia, unspecified site
CPT/HCPCS: 99214

== ENCOUNTER → 2025-09-20 11:04 | Outpatient (BNVA) | payer OTHER, SELFPAY | PROVIDERS: PCP Internal Medicine; Visit Provider Internal Medicine Nephrology | DX: I10 Essential (primary) hypertension (principal); I77.819 Aortic ectasia, unspecified site; G47.33 Obstructive sleep apnea (adult) (pediatric); R60.9 Edema, unspecified; Z79.899 Other long term (current) drug therapy | CPT/HCPCS: 99212 ==